=== PATIENT | male | born 1935 | race Caucasian/White ===

== ENCOUNTER 2017-02-14 09:07 | Inpatient (IN) | payer MEDICARE, SELFPAY ==
[2017-02-14] MEDS ORDERED: Ibuprofen 200 MG Tab PO ONE (09:31)
--- NOTE | 2017-02-14 09:31 | EDM.PDOC ---
ED HPI GENERAL MEDICAL PROBLEM - General Chief Complaint: General Stated Complaint: shortness of breath,fever Time Seen by Provider: 02/14/17 09:19 Source of Information: Reports: Patient, Family, [facility] records, RN History Limitations: Reports: Altered mental status - History of Present Illness INITIAL COMMENTS - FREE TEXT/NARRATIVE: This patient is an 81 year old male that presents to the ER. Patient arrives via EMS. Patient has chronic history of confusion, family at bedside said the patient is a little more confused than normal. The patient comes from alf. The report I have obtained is the patient has had congestion, productive cough, shortness of breath, fever today. The patient is alert, he is oriented to self and year. He does not know where he is, or why he is here. The patient does report that he feels fine, then when I ask him history questions he answers. The patient reports that he has had a chest cold for about 2 weeks. The patient does report some shortness of breath. The patient is conversing in full and complete sentences without difficulty. The family also reports the patient has been incontinent of urine today, but that is his norm. The son reports the patient is in basic care at alf. Reports they get hiim up, help him get cleaned, dressed, fed, then he is independent the remainder of the day. Today he was not able to be independent. Duration: Week(s): (2 per patient) Improves with: Reports: None Worsens with: Reports: None Associated Symptoms: Reports: confusion, cough, cough w sputum, fever/chills, shortness of breath. Denies: chest pain, diaphoresis, headaches, loss of appetite, malaise, nausea/vomiting, rash, seizure, syncope, weakness Treatments [employer]: Reports: Acetaminophen, IV/IO - Related Data Allergies Allergy/AdvReac Type Severity Reaction Status Date / Time No Known Allergies Allergy Verified 02/14/17 09:12 Home Meds: Home Meds Furosemide [Lasix] 40 mg PO ASDIRECTED 01/20/14 [History] Insulin Aspart [Novolog Flexpen] 18 units SUBCUT BID 01/20/14 [History] Insulin Detemir [Levemir Flexpen] 25 units SUBCUT QPM 01/20/14 [History] Lisinopril [Prinivil] 2.5 mg PO DAILY 01/20/14 [History] Niacin [Niaspan] 1,000 mg PO BEDTIME 01/20/14 [History] Oxybutynin 5 mg PO BID 01/20/14 [History] atorvaSTATin [Lipitor] 20 mg PO BEDTIME 01/20/14 [History] Aspirin [Ecotrin] 325 mg PO DAILY 01/21/14 [History] Insulin Detemir [Levemir] 30 unit SUBCUT QAM 01/21/14 [History] Potassium Chloride 15 ml PO DAILY 01/21/14 [History] Magaldrate/Simethicone [Riopan Plus] 15 ml PO ASDIRECTED PRN 03/03/14 [History] Acetaminophen [Tylenol Arthritis] 650 mg PO ASDIRECTED PRN 02/14/17 [History] Acetaminophen [Tylenol Arthritis] 650 mg PO TID 02/14/17 [History] Clotrimazole [Lotrimin AF 1% Crm] 30 gm TOP DAILY 02/14/17 [History] Furosemide [Lasix] 80 mg PO ASDIRECTED 02/14/17 [History] Insulin Aspart [NovoLOG] 15 unit SUBCUT QPM 02/14/17 [History] Metoprolol Succinate [Toprol XL] 50 mg PO DAILY 02/14/17 [History] Nitroglycerin [Nitrostat] 0.4 mg SL Q5M PRN 02/14/17 [History] Spironolactone [Aldactone] 25 mg PO DAILY 02/14/17 [History] Social & Family History - Tobacco Use Years of Tobacco use: 10 Used Tobacco, but Quit: Yes Month Tobacco Last Used: 15 years ago Second Hand Smoke Exposure: No - Alcohol Use Days Per Week of Alcohol Use: 0 - Recreational Drug Use Recreational Drug Use: No ED ROS GENERAL - Review of Systems Review Of Systems: See Below Constitutional: Reports: fever HEENT: Reports: Rhinitis, Sinus problem Respiratory: Reports: Shortness of Breath, Cough, Sputum Cardiovascular: Reports: No symptoms Endocrine: Reports: high glucose GI/Abdominal: Reports: No symptoms : Reports: incontinence Musculoskeletal: Reports: no symptoms Skin: Reports: no symptoms Neurological: Reports: Confusion Psychiatric: Reports: No symptoms Hematologic/Lymphatic: Reports: no symptoms Immunologic: Reports: no symptoms ED EXAM, GENERAL - Physical Exam Exam: See Below Exam Limited By: Altered mental status General Appearance: alert, WD/WN, no apparent distress Eye Exam: bilateral eye: normal inspection, PERRL Ears: normal external exam, normal canal, hearing grossly normal, normal TMs Ear Exam: bilateral ear: auricle normal, canal normal, TM normal Nose: normal inspection, normal mucosa, no blood Throat/Mouth: Normal gums, Normal voice, No airway compromise, Other (dry cracking lips. dry oral mucosa.) Head: atraumatic, normocephalic Neck: normal inspection, supple, non-tender, full range of motion Respiratory/Chest: no respiratory distress, no accessory muscle use, chest non- tender, crackles (BLL). No: accessory muscle use, retractions Cardiovascular: tachycardia, other (+1 BLE edema.) Peripheral Pulses: 2+: radial (L), radial (R), posterior tibial (L), posterior tibial (R), dorsalis pedis (L), dorsalis pedis (R) GI/Abdominal: normal bowel sounds, soft, non tender, no organomegaly, no distention, no abnormal bruit, no mass Back Exam: normal inspection Extremities: normal range of motion, non-tender, normal capillary refill, pedal edema (+1 BLE edema. ), redness (mild LLE anterior boss. Not hot to touch. No obivious infectious source at this site.) Neurological: alert, no motor/sensory deficits, confused, disoriented, slow to respond (to year). No: inattentive Psychiatric: normal affect, normal mood Skin Exam: Warm, Dry, Intact, Normal color, No rash, Erythema (LLE) Lymphatic: no adenopathy EKG INTERPRETATION EKG Date: 02/14/17 Time: 09:49 Rhythm: other (tachy) Rate (beats/min): 107 Comparison: NA - no prior EKG Course - Vital Signs Last Recorded V/S: Last Vital Signs Temp 100.6 F 02/14/17 09:43 Pulse 107 H 02/14/17 09:43 Resp 20 02/14/17 09:43 BP 146/70 H 02/14/17 09:43 Pulse Ox 93 L 02/14/17 09:43 - Orders/Labs/Meds Orders: Active Orders 24 hr Category Date Time Status Chest 1V Frontal [CR] Stat Exams 02/14/17 09:27 Ordered C-REACTIVE PROTEIN [CHEM] Stat Lab 02/14/17 09:32 Received CBC WITH AUTO DIFF [HEME] Stat Lab 02/14/17 09:32 Results COMPREHENSIVE METABOLIC PN,CMP [CHEM] Stat Lab 02/14/17 09:32 Received CULTURE BLOOD [BC] Stat Lab 02/14/17 09:20 Ordered CULTURE BLOOD [BC] Stat Lab 02/14/17 09:20 Ordered MANUAL DIFFERENTIAL QA/NC [HEME] Stat Lab 02/14/17 09:32 Results PRO B-TYPE NATRIUR PEPT,BNPPRO [CHEM] Stat Lab 02/14/17 09:32 Received TROPONIN I [CHEM] Stat Lab 02/14/17 09:32 Received URINALYSIS W/MICROSCOPIC [UA W/MICROSCOPIC] [URIN] Stat Lab 02/14/17 09:32 Uncollected Azithromycin [Zithromax] 500 mg Med 02/14/17 10:15 Active Sodium Chloride 0.9% [Normal Saline] 250 ml IV NOW Sodium Chloride 0.9% [Normal Saline] 1,000 ml Med 02/14/17 10:14 Active IV .BOLUS Blood Culture x2 Reflex Set [OM.PC] Stat Oth 02/14/17 09:19 Ordered Medication Orders Sodium Chloride (Normal Saline) 1,000 mls @ 1,000 mls/hr IV .BOLUS ONE Stop: 02/14/17 11:13 Azithromycin 500 mg/ Sodium (Chloride) 250 mls @ 250 mls/hr IV NOW STA Stop: 02/14/17 11:14 Labs: Laboratory Tests 02/14/17 02/14/17 02/14/17 Range/Units 09:32 09:32 09:32 WBC 20.3 H* (5.0-10.0) 10^3/uL RBC 4.49 L (4.50-6.00) 10^6/uL Hgb 14.1 (14.0-18.0) g/dL Hct 42.5 (40.0-54.0) % MCV 94.7 H (82.0-94.0) fL MCH 31.4 (27.0-32.0) pg MCHC 33.2 (33.0-38.0) g/dL RDW Coeff of Alem 12.7 (11.0-15.0) % Plt Count 150 (150-400) 10^3/uL Add Manual Diff Yes Sodium 141 (136-145) mEq/L Potassium 4.5 (3.5-5.0) mEq/L Chloride 103 (98-106) mEq/L Carbon Dioxide 23 (21-32) mmol/L BUN 31 H D (7-18) mg/dL Creatinine 2.2 H D (0.7-1.3) mg/dL Est Cr Clr Drug Dosing 25.47 mL/min Estimated GFR (MDRD) 29 L (>=60) mL/min Glucose 328 H* D (75-99) mg/dL Lactic Acid 6.0 H (0.4-2.0) mmol/L Calcium 9.0 (8.4-10.1) mg/dL Total Bilirubin 0.7 (0.0-1.0) mg/dL AST 21 (15-37) U/L ALT 32 (12-78) U/L Alkaline Phosphatase 71 (46-116) U/L Troponin I 0.025 (0.00-0.06) ng/mL C-Reactive Protein 16.4 H (0.2-0.8) mg/dL Elg-[id number]-Wlxhyffrhzg Pept 895 (0-1000) pg/nL Total Protein 7.8 (6.4-8.2) g/dL Albumin 3.5 (3.4-5.0) g/dL Meds: Medications Generic Name Dose Route Start Last Admin Trade Name Freq PRN Reason Stop Dose Admin Sodium Chloride 1,000 mls @ 1,000 mls/hr 02/14/17 10:14 Normal Saline IV 02/14/17 11:13 .BOLUS ONE Azithromycin 500 mg/ Sodium 250 mls @ 250 mls/hr 02/14/17 10:15 Chloride IV 02/14/17 11:14 NOW STA Discontinued Medications Generic Name Dose Route Start Last Admin Trade Name Freq PRN Reason Stop Dose Admin Ceftriaxone Sodium 2 gm 02/14/17 10:15 Rocephin IVPUSH 02/14/17 10:16 ONETIME ONE Ibuprofen 800 mg 02/14/17 09:31 02/14/17 09:45 Motrin PO 02/14/17 09:32 800 mg ONETIME ONE Administration - Radiology Interpretation Free Text/Narrative:: CXR: RLL infiltrate. Possible LLE infiltrate. Departure - Departure Time of Disposition: 10:14 Disposition: Admitted As Inpatient 65 Condition: fair Clinical Impression: Pneumonia, Acute renal insufficiency Forms: ED Department Discharge - My Orders Last 24 Hours: My Active Orders 02/14/17 09:19 Blood Culture x2 Reflex Set [OM.PC] Stat 02/14/17 09:20 CULTURE BLOOD [BC] Stat CULTURE BLOOD [BC] Stat 02/14/17 09:27 Chest 1V Frontal [CR] Stat 02/14/17 09:32 C-REACTIVE PROTEIN [CHEM] Stat CBC WITH AUTO DIFF [HEME] Stat COMPREHENSIVE METABOLIC PN,CMP [CHEM] Stat MANUAL DIFFERENTIAL QA/NC [HEME] Stat PRO B-TYPE NATRIUR PEPT,BNPPRO [CHEM] Stat TROPONIN I [CHEM] Stat URINALYSIS W/MICROSCOPIC [UA W/MICROSCOPIC] [URIN] Stat 02/14/17 10:14 Sodium Chloride 0.9% [Normal Saline] 1,000 ml IV .BOLUS 02/14/17 10:15 Azithromycin [Zithromax] 500 mg Sodium Chloride 0.9% [Normal Saline] 250 ml IV NOW - Assessment/Plan Last 24 Hours: My Active Orders 02/14/17 09:19 Blood Culture x2 Reflex Set [OM.PC] Stat 02/14/17 09:20 CULTURE BLOOD [BC] Stat CULTURE BLOOD [BC] Stat 02/14/17 09:27 Chest 1V Frontal [CR] Stat 02/14/17 09:32 C-REACTIVE PROTEIN [CHEM] Stat CBC WITH AUTO DIFF [HEME] Stat COMPREHENSIVE METABOLIC PN,CMP [CHEM] Stat MANUAL DIFFERENTIAL QA/NC [HEME] Stat PRO B-TYPE NATRIUR PEPT,BNPPRO [CHEM] Stat TROPONIN I [CHEM] Stat URINALYSIS W/MICROSCOPIC [UA W/MICROSCOPIC] [URIN] Stat 02/14/17 10:14 Sodium Chloride 0.9% [Normal Saline] 1,000 ml IV .BOLUS 02/14/17 10:15 Azithromycin [Zithromax] 500 mg Sodium Chloride 0.9% [Normal Saline] 250 ml IV NOW Plan: PLEASE USE ER H&P ADMIT H&P. PLEASE SEE RN NOTE FOR PFSH.
[2017-02-14] MEDS ORDERED: Sodium Chloride 0.9% 1,000 ML IV ONE (10:14)
[2017-02-14] MEDS ORDERED: cefTRIAXone 2 GM Vial IVPUSH ONE (10:15)
[2017-02-14] MEDS ORDERED: Azithromycin 500 MG in Sodium Chloride 0.9% 250 ML IV STA (10:15)
[2017-02-14] MEDS ORDERED: Acetaminophen 325 MG Tab PO PRN (11:44)
[2017-02-14] MEDS ORDERED: Aluminum Hydroxide/Magnesium Hydroxide/Simethicone Susp 30 ML Cup PO PRN (11:44)
[2017-02-14] MEDS ORDERED: Albuterol/Ipratropium 3.0-0.5 MG/3 ML Neb Soln NEB PRN (11:44)
[2017-02-14] MEDS ORDERED: Ibuprofen 200 MG Tab PO PRN (11:44)
[2017-02-14] MEDS ORDERED: Nitroglycerin 0.4 MG Tab.SL SL PRN (11:44)
[2017-02-14] MEDS ORDERED: Acetaminophen/HYDROcodone 325-5 MG Tab PO PRN (11:44)
[2017-02-14] MEDS ORDERED: Ondansetron 4 MG/2 ML SDV IV PRN (11:44)
[2017-02-14] MEDS ORDERED: Morphine 2 MG/ML Syringe IVPUSH PRN (11:44)
[2017-02-14] MEDS: Insulin Aspart 100 Units/ML 3 ML Pen SUBCUT SCH ×2 (12:32→18:57)
[2017-02-14] MEDS: Enoxaparin 30 MG/0.3 ML Syringe SUBCUT SCH (12:32)
[2017-02-14] MEDS: Sodium Chloride 0.9% 1,000 ML IV SCH (12:32)
[2017-02-14] MEDS: atorvaSTATin 20 MG Tab PO SCH (19:59)
[2017-02-14] MEDS: Oxybutynin 5 MG Tab PO SCH (19:59)
[2017-02-14] MEDS: Insulin Detemir 100 Units/ML 3 ML Pen SUBCUT SCH (20:54)
[2017-02-14] MEDS: NIACIN 1000 MG PO SCH (20:56)
[2017-02-15] MEDS: Sodium Chloride 0.9% 1,000 ML IV SCH (01:55)
[2017-02-15] MEDS: Aspirin 325 MG Tab.EC PO SCH (07:45)
[2017-02-15] MEDS: Potassium Chloride 10% 20 MEQ/15 ML Soln 15 ML UD Cup PO SCH (07:45)
[2017-02-15] MEDS: Metoprolol Succinate 25 MG Tab.ER PO SCH (07:46)
[2017-02-15] MEDS: Oxybutynin 5 MG Tab PO SCH ×2 (07:46→19:58)
[2017-02-15] MEDS: Lisinopril 5 MG Tab PO SCH (07:46)
[2017-02-15] MEDS: Spironolactone 25 MG Tab PO SCH (07:47)
[2017-02-15] MEDS: cefTRIAXone 1 GM Vial IVPUSH SCH (07:48)
[2017-02-15] MEDS: Clotrimazole 1% Crm 30 GM Tube TOP SCH (07:49)
[2017-02-15] MEDS: Insulin Aspart 100 Units/ML 3 ML Pen SUBCUT SCH ×3 (07:50→17:39)
[2017-02-15] MEDS ORDERED: Furosemide 40 MG Tab PO SCH (08:00)
[2017-02-15] MEDS ORDERED: Insulin Detemir 100 Units/ML 3 ML Pen SUBCUT SCH (08:00)
[2017-02-15] MEDS: Albuterol/Ipratropium 3.0-0.5 MG/3 ML Neb Soln NEB SCH ×4 (09:05→21:57)
[2017-02-15] MEDS: Azithromycin 500 MG in Sodium Chloride 0.9% 250 ML IV SCH (09:05)
--- NOTE | 2017-02-15 10:35 | PN ---
DATE: 02/15/2017 S: Ralf Ta is an 81-year-old gentleman who is mildly septic with an elevated white count. O: NECK: Supple. CHEST: Occasional wheezing in right lung. ABDOMEN: Soft. EXTREMITIES: He has a moderate severe cellulitis or vasculitis in the left lower extremity. ASSESSMENT: 1. VASCULITIS. 2. BRONCHIOLITIS. 3. DIABETES MELLITUS. 4. RENAL INSUFFICIENCY. P: Continue present therapy. SY /[id number]
[2017-02-15] MEDS: Enoxaparin 30 MG/0.3 ML Syringe SUBCUT SCH (12:04)
[2017-02-15] MEDS: atorvaSTATin 20 MG Tab PO SCH (19:58)
[2017-02-15] MEDS: Insulin Detemir 100 Units/ML 3 ML Pen SUBCUT SCH (20:02)
[2017-02-15] MEDS: NIACIN 1000 MG PO SCH (20:14)
[2017-02-16] MEDS ORDERED: Furosemide 80 MG Tab PO SCH (08:00)
[2017-02-16] MEDS: Aspirin 325 MG Tab.EC PO SCH (08:17)
[2017-02-16] MEDS: Furosemide 40 MG Tab PO SCH (08:17)
[2017-02-16] MEDS: Oxybutynin 5 MG Tab PO SCH ×2 (08:17→21:38)
[2017-02-16] MEDS: Lisinopril 5 MG Tab PO SCH (08:18)
[2017-02-16] MEDS: Spironolactone 25 MG Tab PO SCH (08:18)
[2017-02-16] MEDS: Potassium Chloride 10% 20 MEQ/15 ML Soln 15 ML UD Cup PO SCH (08:18)
[2017-02-16] MEDS: Clotrimazole 1% Crm 30 GM Tube TOP SCH (08:18)
[2017-02-16] MEDS: Metoprolol Succinate 25 MG Tab.ER PO SCH (08:18)
[2017-02-16] MEDS: Insulin Detemir 100 Units/ML 3 ML Pen SUBCUT SCH ×2 (08:21→21:36)
[2017-02-16] MEDS: Insulin Aspart 100 Units/ML 3 ML Pen SUBCUT SCH ×3 (08:21→18:04)
[2017-02-16] MEDS: cefTRIAXone 1 GM Vial IVPUSH SCH (08:46)
[2017-02-16] MEDS: Albuterol/Ipratropium 3.0-0.5 MG/3 ML Neb Soln NEB SCH ×4 (08:47→21:41)
[2017-02-16] MEDS: Azithromycin 500 MG in Sodium Chloride 0.9% 250 ML IV SCH (08:47)
--- NOTE | 2017-02-16 12:45 | PN ---
DATE: 02/16/2017 S: Ralf Ta is in with a cellulitis to the left lower extremity, bronchiolitis. He says he feels much better. O: NECK: Supple. CHEST: Basically clear. CARDIAC: Sounds are good. Cellulitis 50% improved. ASSESSMENT: 1. CELLULITIS. 2. BRONCHIOLITIS. P: Continue present therapy. Blood sugar has been good. LAURA/QUIANA /[id number]
[2017-02-16] MEDS: Enoxaparin 30 MG/0.3 ML Syringe SUBCUT SCH (13:06)
[2017-02-16] MEDS: atorvaSTATin 20 MG Tab PO SCH (21:37)
[2017-02-16] MEDS: NIACIN 1000 MG PO SCH (21:39)
[2017-02-17] MEDS: Insulin Detemir 100 Units/ML 3 ML Pen SUBCUT SCH ×2 (08:05→20:21)
[2017-02-17] MEDS: Azithromycin 500 MG in Sodium Chloride 0.9% 250 ML IV SCH (08:07)
[2017-02-17] MEDS: Potassium Chloride 10% 20 MEQ/15 ML Soln 15 ML UD Cup PO SCH (08:07)
[2017-02-17] MEDS: cefTRIAXone 1 GM Vial IVPUSH SCH (08:07)
[2017-02-17] MEDS: Furosemide 40 MG Tab PO SCH (08:08)
[2017-02-17] MEDS: Oxybutynin 5 MG Tab PO SCH ×2 (08:08→20:21)
[2017-02-17] MEDS: Lisinopril 5 MG Tab PO SCH (08:08)
[2017-02-17] MEDS: Spironolactone 25 MG Tab PO SCH (08:09)
[2017-02-17] MEDS: Metoprolol Succinate 25 MG Tab.ER PO SCH (08:09)
[2017-02-17] MEDS: Aspirin 325 MG Tab.EC PO SCH (08:10)
[2017-02-17] MEDS: Clotrimazole 1% Crm 30 GM Tube TOP SCH (08:10)
[2017-02-17] MEDS: Insulin Aspart 100 Units/ML 3 ML Pen SUBCUT SCH ×3 (08:13→17:30)
[2017-02-17] MEDS: Albuterol/Ipratropium 3.0-0.5 MG/3 ML Neb Soln NEB SCH ×4 (09:14→20:22)
--- NOTE | 2017-02-17 10:42 | PN ---
DATE: 02/17/2017 S: Ralf Ta in with bronchiolitis, cellulitis to the left lower extremity, doing quite nice, and he feels better. O: LUNGS: Relatively clear. EXTREMITIES: Cellulitis of the left lower extremity resolving nicely. C-reactive protein is down. ASSESSMENT: CELLULITIS, BRONCHIOLITIS RESPONDING NICELY. LAURA/QUIANA /[id number]
[2017-02-17] MEDS: Enoxaparin 30 MG/0.3 ML Syringe SUBCUT SCH (12:23)
[2017-02-17] MEDS: NIACIN 1000 MG PO SCH (20:21)
[2017-02-17] MEDS: atorvaSTATin 20 MG Tab PO SCH (20:21)
[2017-02-18] MEDS: Insulin Detemir 100 Units/ML 3 ML Pen SUBCUT SCH (07:20)
[2017-02-18 07:25] VITALS: BP 160/91
[2017-02-18] MEDS: Spironolactone 25 MG Tab PO SCH (07:30)
[2017-02-18] MEDS: Clotrimazole 1% Crm 30 GM Tube TOP SCH (07:30)
[2017-02-18] MEDS: Aspirin 325 MG Tab.EC PO SCH (07:30)
[2017-02-18] MEDS: Furosemide 40 MG Tab PO SCH (07:30)
[2017-02-18] MEDS: Potassium Chloride 10% 20 MEQ/15 ML Soln 15 ML UD Cup PO SCH (07:31)
[2017-02-18] MEDS: Oxybutynin 5 MG Tab PO SCH (07:31)
[2017-02-18] MEDS: Lisinopril 5 MG Tab PO SCH (07:31)
[2017-02-18] MEDS: Metoprolol Succinate 25 MG Tab.ER PO SCH (07:32)
[2017-02-18] MEDS: cefTRIAXone 1 GM Vial IVPUSH SCH (07:32)
[2017-02-18] MEDS: Azithromycin 500 MG in Sodium Chloride 0.9% 250 ML IV SCH (07:41)
[2017-02-18] MEDS: Insulin Aspart 100 Units/ML 3 ML Pen SUBCUT SCH (08:17)
[2017-02-18] MEDS: Albuterol/Ipratropium 3.0-0.5 MG/3 ML Neb Soln NEB SCH (08:46)
--- NOTE | 2017-02-21 07:24 | DISCH ---
HOSPITAL COURSE: Ralf Ta is an elderly 81-year-old gentleman from the [facility] in [place] came down with bronchiolitis and cellulitis of left lower extremity, started on IV antibiotics and responded nicely at time of discharge. His lungs were clear. The cellulitis almost totally resolved. C-reactive protein is 16.4 on admission that dropped down to 7.4 day before discharge. CBC on admission, white count 23 that dropped to normal at 5. Panel-8, creatinine was elevated at 2.2 that came down to normal after IV fluids and his blood sugars were elevated when he came in, they returned to treatable levels. Urinalysis showed glycosuria. DISPOSITION: The patient discharged back to [facility] and to be seen on a p.r.n. basis. DISCHARGE MEDICATIONS: Hospital medications plus Levaquin 500 mg daily for 7 days. DISCHARGE DIAGNOSIS: 1. BRONCHIOLITIS. 2. CELLULITIS, LEFT LOWER EXTREMITY. 3. ACUTE RENAL INSUFFICIENCY. 4. DIABETES MELLITUS. 5. HYPERTENSION. LAURA/QUIANA /[id number]
== END 2017-02-18 10:20 | DRG 202 ==
LOC: CC.ED 09:07 → UNDOADMIN 11:00 → CC.MS 11:00 → UNDOADMIN 11:44 → CC.MS 11:44
PROVIDERS: ADMIT Nurse Practitioner; ATTEND General Practice
DX: J18.9 Pneumonia, unspecified organism (principal); J21.9 Acute bronchiolitis, unspecified; L03.116 Cellulitis of left lower limb; N17.9 Acute kidney failure, unspecified; E11.9 Type 2 diabetes mellitus without complications; I10 Essential (primary) hypertension; Z79.4 Long term (current) use of insulin
CPT/HCPCS: 36415; 51702; 71010; 80053; 81001; 83605; 83880; 84484; 85025; 86140; 87040 ×2; 87804 ×2; 93005; 93010; 96365; 96375; 99285; A9270; J0456; J0696; J7030; J7050; 80048; 82962; 83735; 84443; 93880; 94640; 94640-76; 94760; 96368; 97161-GP; J1650; J1815-GY

== ENCOUNTER 2018-04-25 12:30 | Inpatient (IN) | payer MEDICARE, MEDICAID ==
--- NOTE | 2018-04-25 12:51 | EDM.PDOC ---
ED HPI GENERAL MEDICAL PROBLEM - General Chief Complaint: Lower Extremity Injury/Pain Stated Complaint: LLE cellulitis and decreased kidney function Time Seen by Provider: 04/25/18 12:44 Source of Information: Reports: Patient, Family History Limitations: Reports: No Limitations - History of Present Illness INITIAL COMMENTS - FREE TEXT/NARRATIVE: Ralf is an 82 year old male, with PMH of insulin dependent type II DM, CAD, hypertension, hyperlipidemia, CKD, urinary incontinence, dementia, and obesity who presents to the ED as directed by his PCP in [place] with c/o right "kidney pain." He reports he has been struggling with left foot cellulitis and was hospitalized in [place] 04/11/18-04/14/18. He reports he has been on oral antibiotics since then as well. He was in to see his PCP today with this c/o kidney pain. Workup was completed and his creatinine was found to be 2.9 on lab work. She recommended he go to the [place] ER for admission for IVF and antibiotics. The patient refused to go to [place] and instead came to [facility] as he wished to be admitted here. He reports he normally doctors with Dr. Song so he wanted to come here. He currently resides in [facility] in [place]. He reports that the past few days he has had some right flank pain/mid back pain that sort of radiates to his groin. He has also been somewhat nauseated the last four days. He denies any chest pain, shortness of breath at rest, diarrhea, abdominal pain, dizziness, decreased appetite, fever, chills, N/T. Upon further questioning he denies flank/back pain in the ED. He rates the pain a 2/10 to his left foot. He has not tried taking anything for it. Pain is worse with movement. He reports that he has been on oral antibiotics for his left foot cellulitis. He feels that it has gotten more red and warm to touch the past few days. Onset: Gradual, Unknown/Unsure Duration: Getting Worse Location: Reports: Lower Extremity, Left Left Leg Pain Score (Numeric/FACES): 2 - Related Data Allergies Allergy/AdvReac Type Severity Reaction Status Date / Time No Known Allergies Allergy Verified 04/25/18 14:11 Home Meds: Home Meds Furosemide [Lasix] 40 mg PO ASDIRECTED 01/20/14 [History] Insulin Aspart [Novolog Flexpen] 20 units SUBCUT 08,12 01/20/14 [History] Insulin Detemir [Levemir Flexpen] 25 units SUBCUT QPM 01/20/14 [History] Lisinopril [Prinivil] 2.5 mg PO DAILY 01/20/14 [History] Niacin [Niaspan] 1,000 mg PO BEDTIME 01/20/14 [History] Oxybutynin 5 mg PO BID 01/20/14 [History] atorvaSTATin [Lipitor] 20 mg PO BEDTIME 01/20/14 [History] Insulin Detemir [Levemir] 30 unit SUBCUT QAM 01/21/14 [History] Potassium Chloride 15 ml PO DAILY 01/21/14 [History] Nitroglycerin [Nitrostat] 0.4 mg SL Q5M PRN 02/14/17 [History] Spironolactone [Aldactone] 25 mg PO DAILY 02/14/17 [History] Metoprolol Succinate [Toprol XL] 25 mg PO DAILY tab.er 02/18/17 [Rx] Insulin Detemir [Levemir] 25 unit SUBCUT BEDTIME 04/25/18 [History] Insulin Detemir [Levemir] 30 unit SUBCUT ACBREAKFAST 04/25/18 [History] Sulfamethoxazole/Trimethoprim [Sulfatrim 800-160 mg/20 ml Tracie] 20 ml PO DAILY [History] Past Medical History HEENT History: Reports: Cataract Cardiovascular History: Reports: Angina, Bypass, High Cholesterol, Hypertension , NM Genitourinary History: Reports: Urinary Incontinence Musculoskeletal History: Reports: Arthritis Neurological History: Reports: Other (See Below) Other Neuro History: some short term memory loss Psychiatric History: Reports: Dementia Endocrine/Metabolic History: Reports: IDDM - Past Surgical History HEENT Surgical History: Reports: Cataract Surgery Cardiovascular Surgical History: Reports: Coronary Artery Bypass GI Surgical History: Reports: Appendectomy Musculoskeletal Surgical History: Reports: None Social & Family History - Family History Family Medical History: Noncontributory - Tobacco Use Smoking Status *Q: Never Smoker - Caffeine Use Caffeine Use: Reports: Coffee Review of Systems - Review of Systems Review Of Systems: See Below Constitutional: Denies: Chills, Diaphoresis, Fever, Weakness Eyes: Reports: No Symptoms Ears: Reports: No Symptoms Nose: Reports: No Symptoms Mouth/Throat: Reports: No Symptoms Respiratory: Reports: No Symptoms. Denies: Shortness of Breath, Wheezing, Pleuritic Chest Pain, Cough, Sputum Cardiovascular: Reports: Edema, Other (dyspnea with exertion). Denies: Chest Pain, Lightheadedness, Palpitations, Syncope GI/Abdominal: Reports: Nausea. Denies: Abdominal Pain, Constipation, Decreased Appetite, Diarrhea, Vomiting Genitourinary: Reports: Incontinence. Denies: Dysuria, Hematuria Musculoskeletal: Reports: Back Pain Skin: Reports: Erythema (LLE) Neurological: Denies: Dizziness, Headache, Numbness, Paresthesia, Tingling, Difficulty Walking, Weakness, Gait Disturbance ED EXAM, GENERAL - Physical Exam Exam: See Below Exam Limited By: No Limitations General Appearance: Alert, WD/WN, No Apparent Distress Head: Atraumatic, Normocephalic Neck: Normal Inspection, Supple, Non-Tender, Full Range of Motion Respiratory/Chest: No Respiratory Distress, Lungs Clear, Normal Breath Sounds, No Accessory Muscle Use, Chest Non-Tender Cardiovascular: Normal Peripheral Pulses, No JVD, No Murmur, Irregularly Irregular Peripheral Pulses: 2+: Posterior Tibial (L), Posterior Tibial (R), Dorsalis Pedis (L), Dorsalis Pedis (R) GI/Abdominal: Normal Bowel Sounds, Soft, Non-Tender, No Organomegaly, No Distention, No Abnormal Bruit, No Mass Back Exam: Normal Inspection, Full Range of Motion. No: CVA Tenderness (L), CVA Tenderness (R) Extremities: Normal Range of Motion, Non-Tender, Normal Capillary Refill, Pedal Edema (2+ pitting to LLE, 1+ pitting to RLE), Increased Warmth (Left foot), Redness (left foot ). No: Jim's Sign, Leg Pain Neurological: Alert, Oriented, CN II-XII Intact, Normal Cognition, Normal Gait, Normal Reflexes, No Motor/Sensory Deficits Psychiatric: Normal Affect, Normal Mood Skin Exam: Erythema (left foot), Increased Warmth (left foot), Other (scattered scabs ) Lymphatic: No Adenopathy Course - Vital Signs Last Recorded V/S: Last Vital Signs Temp 97.4 F 04/27/18 15:34 Pulse 70 06/21/18 15:34 Resp 18 04/27/18 15:34 BP 135/58 L 04/27/18 15:34 Pulse Ox 98 04/27/18 15:34 - Orders/Labs/Meds Orders: Medication Orders Acetaminophen (Tylenol) 650 mg PO Q4H PRN PRN Reason: Pain (Mild 1-3)/fever Atorvastatin Calcium (Lipitor) 20 mg PO BEDTIME [facility] Last Admin: 04/26/18 20:24 Dose: 20 mg Admin: 04/25/18 20:07 Dose: 20 mg Enoxaparin Sodium (Lovenox) 30 mg SUBCUT DAILY@1600 [facility] Last Admin: 04/27/18 16:58 Dose: 30 mg Admin: 04/26/18 16:56 Dose: 30 mg Admin: 04/25/18 15:18 Dose: 30 mg Furosemide (Lasix) 40 mg PO DAILY [facility] Last Admin: 04/27/18 07:53 Dose: 40 mg Admin: 04/26/18 07:26 Dose: 40 mg Sodium Chloride (Normal Saline) 1,000 mls @ 75 mls/hr IV ASDIRECTED [facility] Last Admin: 04/27/18 04:19 Dose: 75 mls/hr Infusion: 04/27/18 03:12 Dose: 75 mls/hr Admin: 04/26/18 13:52 Dose: 75 mls/hr Insulin Aspart (Novolog) 0 unit SUBCUT WITHMEALSANDBED [facility]; Protocol Last Admin: 04/27/18 17:06 Dose: 3 units Admin: 04/27/18 11:52 Dose: 3 units Admin: 04/27/18 08:11 Dose: 3 units Admin: 04/26/18 20:47 Dose: 3 units Admin: 04/26/18 17:29 Dose: Not Given Insulin Detemir (Levemir) 25 unit SUBCUT BEDTIME [facility] Last Admin: 04/26/18 20:51 Dose: 25 units Admin: 04/25/18 20:16 Dose: 25 units Insulin Detemir (Levemir) 30 unit SUBCUT DAILY [facility] Last Admin: 04/27/18 07:54 Dose: 30 units Admin: 04/26/18 07:29 Dose: 30 units Lisinopril (Prinivil) 2.5 mg PO DAILY [facility] Last Admin: 04/27/18 07:51 Dose: 2.5 mg Admin: 04/26/18 07:26 Dose: 2.5 mg Magnesium Hydroxide (Milk Of Magnesia) 30 ml PO Q12H PRN PRN Reason: Constipation Metoprolol Succinate (Toprol Xl) 25 mg PO DAILY [facility] Last Admin: 04/27/18 07:51 Dose: 25 mg Admin: 04/26/18 07:33 Dose: 25 mg Nitroglycerin (Nitrostat) 0.4 mg SL Q5M PRN PRN Reason: Chest Pain Niacin [Niaspan] 1, (000 Mg) 1,000 mg PO BEDTIME [facility] Last Admin: 04/26/18 20:24 Dose: 1,000 mg Admin: 04/26/18 12:25 Dose: Oxybutynin Chloride (Oxybutynin) 5 mg PO BID [facility] Last Admin: 04/27/18 07:50 Dose: 5 mg Admin: 04/26/18 20:24 Dose: 5 mg Admin: 04/26/18 07:26 Dose: 5 mg Admin: 04/25/18 20:07 Dose: 5 mg Potassium Chloride (Klor-Con 10) 20 meq PO BIDMEALS [facility] Last Admin: 04/27/18 17:06 Dose: 20 meq Admin: 04/27/18 07:50 Dose: 20 meq Admin: 04/26/18 16:56 Dose: 20 meq Spironolactone (Aldactone) 25 mg PO DAILY [facility] Last Admin: 04/27/18 07:50 Dose: 25 mg Admin: 04/26/18 07:26 Dose: 25 mg Temazepam (Restoril) 15 mg PO BEDTIME PRN PRN Reason: Sleep Labs: Laboratory Tests 04/25/18 04/25/18 04/25/18 Range/Units 12:50 12:51 12:58 WBC 7.7 (5.0-10.0) 10^3/uL RBC 4.03 L (4.50-6.00) 10^6/uL Hgb 12.3 L (14.0-18.0) g/dL Hct 37.5 L (40.0-54.0) % MCV 93.1 (82.0-94.0) fL MCH 30.5 (27.0-32.0) pg MCHC 32.8 L (33.0-38.0) g/dL RDW Coeff of Alem 13.2 (11.0-15.0) % Plt Count 189 (150-400) 10^3/uL Neut % (Auto) 67.5 (35-85) % Lymph % (Auto) 17.5 (10-55) % [place] % (Auto) 13.5 (0-16) % Eos % (Auto) 1.0 (0-5) % Baso % (Auto) 0.5 (0-3) % Neut # (Auto) 5.16 (1.80-7.00) 10^3/uL Lymph # (Auto) 1.34 (1.00-4.80) 10^3/uL [place] # (Auto) 1.03 H (0.00-0.80) 10^3/uL Eos # (Auto) 0.08 (0.00-0.45) 10^3/uL Baso # (Auto) 0.04 10^3/uL Sodium 138 (136-145) mEq/L Potassium 4.6 (3.5-5.0) mEq/L Chloride 104 (98-106) mEq/L Carbon Dioxide 28 (21-32) mmol/L BUN 33 H (7-18) mg/dL Creatinine 2.8 H* D (0.7-1.3) mg/dL Est Cr Clr Drug Dosing 19.34 mL/min Estimated GFR (MDRD) 22 L (>=60) mL/min Glucose 58 L D (75-99) mg/dL Calcium 8.7 (8.4-10.1) mg/dL Total Bilirubin 0.3 (0.0-1.0) mg/dL AST 20 (15-37) U/L ALT 25 (12-78) U/L Alkaline Phosphatase 76 (46-116) U/L C-Reactive Protein 1.7 H (0.2-0.8) mg/dL Total Protein 7.0 (6.4-8.2) g/dL Albumin 3.2 L (3.4-5.0) g/dL Urine Color Yellow (YELLOW) Urine Appearance Clear (CLEAR) Urine pH 6.0 (4.5-8.0) Ur Specific [place] 1.010 (1.003-1.020) Urine Protein Negative (NEGATIVE) mg/dL Urine Glucose (UA) Negative (NEGATIVE) mg/dL Urine Ketones Negative (NEGATIVE) mg/dL Urine Occult Blood Negative (NEGATIVE) Urine Nitrite Negative (NEGATIVE) Urine Bilirubin Negative (NEGATIVE) Urine Urobilinogen 0.2 (0.2-1.0) EU/dL Ur Leukocyte Esterase Negative (NEGATIVE) Urine RBC Not seen (0-5) /HPF Urine WBC Not seen (0-5) /HPF Meds: Medications Generic Name Dose Route Start Last Admin Trade Name Freq PRN Reason Stop Dose Admin Acetaminophen 650 mg 04/25/18 14:35 Tylenol PO Q4H PRN Pain (Mild 1-3)/fever Atorvastatin Calcium 20 mg 04/25/18 20:00 04/26/18 20:24 Lipitor PO 20 mg BEDTIME [facility] Administration Enoxaparin Sodium 30 mg 04/25/18 15:00 04/27/18 16:58 Lovenox SUBCUT 30 mg DAILY@1600 [facility] Administration Furosemide 40 mg 04/26/18 08:00 04/27/18 07:53 Lasix PO 40 mg DAILY [facility] Administration Sodium Chloride 1,000 mls @ 75 mls/hr 04/26/18 10:30 04/27/18 04:19 Normal Saline IV 75 mls/hr ASDIRECTED [facility] Administration Insulin Aspart 0 unit 04/26/18 17:30 04/27/18 17:06 Novolog SUBCUT 3 units WITHMEALSANDBED [facility] Administration Protocol Insulin Detemir 25 unit 04/25/18 20:00 04/26/18 20:51 Levemir SUBCUT 25 units BEDTIME [facility] Administration Insulin Detemir 30 unit 04/26/18 08:00 04/27/18 07:54 Levemir SUBCUT 30 units DAILY [facility] Administration Lisinopril 2.5 mg 04/26/18 08:00 04/27/18 07:51 Prinivil PO 2.5 mg DAILY [facility] Administration Magnesium Hydroxide 30 ml 04/25/18 14:35 Milk Of Magnesia PO Q12H PRN Constipation Metoprolol Succinate 25 mg 04/26/18 08:00 04/27/18 07:51 Toprol Xl PO 25 mg DAILY [facility] Administration Nitroglycerin 0.4 mg 04/25/18 14:35 Nitrostat SL Q5M PRN Chest Pain Niacin [Niaspan] 1, 1,000 mg 04/25/18 20:00 04/26/18 20:24 000 Mg PO 1,000 mg BEDTIME [facility] Administration Oxybutynin Chloride 5 mg 04/25/18 20:00 04/27/18 07:50 Oxybutynin PO 5 mg BID [facility] Administration Potassium Chloride 20 meq 04/26/18 17:30 04/27/18 17:06 Klor-Con 10 PO 20 meq BIDMEALS [facility] Administration Spironolactone 25 mg 04/26/18 08:00 04/27/18 07:50 Aldactone PO 25 mg DAILY [facility] Administration Temazepam 15 mg 04/25/18 14:35 Restoril PO BEDTIME PRN Sleep Discontinued Medications Generic Name Dose Route Start Last Admin Trade Name Freq PRN Reason Stop Dose Admin Sodium Chloride 1,000 mls @ 500 mls/hr 04/25/18 14:35 04/26/18 11:24 Normal Saline IV 500 mls/hr .BOLUS [facility] Administration Sodium Chloride 250 mls @ 500 mls/hr 04/25/18 15:15 Normal Saline IV ASDIRECTED [facility] Sodium Chloride 1,000 mls @ 500 mls/hr 04/25/18 15:15 Normal Saline IV ASDIRECTED [facility] Clindamycin Phosphate 300 mg/ 50 mls @ 100 mls/hr 04/25/18 17:30 04/26/18 05: 30 Premix IV 100 mls/hr Q6H [facility] Administration Clindamycin Phosphate 300 mg/ 50 mls @ 100 mls/hr 04/26/18 12:00 04/27/18 05: 28 Premix IV 100 mls/hr 0000,0600,1200,1800 [facility] Administration Insulin Aspart 20 unit 04/26/18 08:00 04/26/18 11:38 Novolog SUBCUT Not Given 0800,1200 [facility] Insulin Detemir 30 unit 04/26/18 08:00 Levemir SUBCUT QAM [facility] Insulin Detemir 25 unit 04/25/18 20:00 Levemir SUBCUT QPM [facility] Potassium Chloride 20 meq 04/26/18 08:00 04/26/18 07:26 Potassium Chloride Solution PO 20 meq DAILY [facility] Administration - Re-Assessments/Exams Free Text/Narrative Re-Assessment/Exam: Discussed labs with patient and family. We will admit acute to Dr. Song for IVF and IV antibiotics. Departure - Departure Time of Disposition: 14:41 Disposition: Admitted As Inpatient 65 Condition: Fair Clinical Impression: Acute on chronic renal insufficiency, Cellulitis of left foot Type II diabetes mellitus Qualifiers: Diabetes mellitus longterm insulin use: with longterm use Diabetes mellitus complication status: with kidney complications Diabetes mellitus complication detail: with chronic kidney disease Chronic kidney disease stage: stage 3 ( moderate) Qualified Code(s): E11.22 - Type 2 diabetes mellitus with diabetic chronic kidney disease - Discharge Information - Problem List & Annotations (1) Acute on chronic renal insufficiency SNOMED Code(s): 126288138 Code(s): N28.9 - DISORDER OF KIDNEY AND URETER, UNSPECIFIED; N18.9 - CHRONIC KIDNEY DISEASE, UNSPECIFIED Status: Acute Current Visit: Yes (2) Cellulitis of left foot SNOMED Code(s): 480002784 Code(s): L03.116 - CELLULITIS OF LEFT LOWER LIMB Status: Acute Current Visit: Yes (3) Type II diabetes mellitus SNOMED Code(s): 36712031 Code(s): E11.9 - TYPE 2 DIABETES MELLITUS WITHOUT COMPLICATIONS Status: Chronic Current Visit: Yes Qualifiers: Diabetes mellitus intermediate project manager insulin use: with intermediate project manager use Diabetes mellitus complication status: with kidney complications Diabetes mellitus complication detail: with chronic kidney disease Chronic kidney disease stage : stage 3 (moderate) Qualified Code(s): E11.22 - Type 2 diabetes mellitus with diabetic chronic kidney disease; N18.3 - Chronic kidney disease, stage 3 ( moderate); Z79.4 - alf (current) use of insulin (4) Hypertension SNOMED Code(s): 35622929 Code(s): I10 - ESSENTIAL (PRIMARY) HYPERTENSION Status: Acute Current Visit: Yes Qualifiers: Hypertension type: essential hypertension Qualified Code(s): I10 - Essential (primary) hypertension - Problem List Review Problem List Initiated/Reviewed/Updated: Yes - Assessment/Plan Admission H&P: Please use this note as an admission H&P Plan: Acute on Chronic Renal Insufficiency Creatinine elevated to 2.8. Baseline creatinine 1.4. Bolus NS at 500 mL/hr. UA normal. Daily labs. LLE Cellulitis Patient has been treated orally with keflex. Left foot up to ankle is slightly reddened and warm to touch. WBC normal. CRP 1.7. Will start clindamycin. Type II DM Continue home insulin dosing. QID accu checks. Consistent carb diet. Hypertension Continue home medications
[2018-04-25] MEDS ORDERED: Magnesium Hydroxide 400 MG/5 ML Susp 30 ML Cup PO PRN (14:35)
[2018-04-25] MEDS ORDERED: Nitroglycerin 0.4 MG Tab.SL SL PRN (14:35)
[2018-04-25] MEDS ORDERED: Temazepam 15 MG Cap PO PRN (14:35)
[2018-04-25] MEDS ORDERED: Acetaminophen 325 MG Tab PO PRN (14:35)
[2018-04-25] MEDS: Sodium Chloride 0.9% 1,000 ML IV SCH ×2 (15:06→15:16)
[2018-04-25] MEDS ORDERED: Sodium Chloride 0.9% 250 ML IV SCH (15:15)
[2018-04-25] MEDS ORDERED: Sodium Chloride 0.9% 1,000 ML IV SCH (15:15)
[2018-04-25] MEDS: Enoxaparin 30 MG/0.3 ML Syringe SUBCUT SCH (15:18)
[2018-04-25] MEDS: Clindamycin Phosphate in D5W 300 MG in Premix Bag 1 BAG IV SCH ×4 (18:45→23:32)
[2018-04-25] MEDS ORDERED: Insulin Detemir 100 Units/ML 3 ML Pen SUBCUT SCH (20:00)
[2018-04-25] MEDS: atorvaSTATin 20 MG Tab PO SCH (20:07)
[2018-04-25] MEDS: Oxybutynin 5 MG Tab PO SCH (20:07)
[2018-04-25] MEDS: Insulin Detemir 100 Units/ML 3 ML Pen SUBCUT SCH (20:16)
[2018-04-26] MEDS: Clindamycin Phosphate in D5W 300 MG in Premix Bag 1 BAG IV SCH ×8 (05:30→23:43)
[2018-04-26] MEDS: Oxybutynin 5 MG Tab PO SCH ×2 (07:26→20:24)
[2018-04-26] MEDS: Spironolactone 25 MG Tab PO SCH (07:26)
[2018-04-26] MEDS: Lisinopril 5 MG Tab PO SCH (07:26)
[2018-04-26] MEDS: Furosemide 20 MG Tab PO SCH (07:26)
[2018-04-26] MEDS: Insulin Detemir 100 Units/ML 3 ML Pen SUBCUT SCH ×2 (07:29→20:51)
[2018-04-26] MEDS: Metoprolol Succinate 25 MG Tab.ER PO SCH (07:33)
[2018-04-26] MEDS ORDERED: Insulin Detemir 100 Units/ML 3 ML Pen SUBCUT SCH (08:00)
[2018-04-26] MEDS ORDERED: Potassium Chloride 10% 20 MEQ/15 ML Soln 15 ML UD Cup PO SCH (08:00)
[2018-04-26] MEDS: Insulin Aspart 100 Units/ML 3 ML Pen SUBCUT SCH ×4 (08:09→20:47)
[2018-04-26] MEDS: Sodium Chloride 0.9% 1,000 ML IV SCH ×2 (11:24→13:52)
--- NOTE | 2018-04-26 12:03 | PCM.PN ---
- General Info Date of Service: 04/26/18 Admission Dx/Problem (Free Text): LLE Cellulitis Acute on Chronic Renal Insufficiency Subjective Update: Ralf was admitted yesterday with acute on chronic renal insufficiency and left foot cellulitis. He was also having some right flank pain prior to presenting here. He reports he no longer is having any pain. He reports he is feeling well this morning. His vital signs have been stable. Redness and warmth to his left foot has resolved. He is urinating without difficulty. Nursing staff report he is up with assist of 1 and has been ambulating well. Functional Status: Reports: Pain Controlled, Tolerating Diet, Ambulating, Urinating. Denies: New Symptoms - Review of Systems General: Denies: Fever, Weakness, Fatigue HEENT: Reports: No Symptoms Pulmonary: Denies: Shortness of Breath, Pleuritic Chest Pain, Cough, Sputum, Wheezing Cardiovascular: Reports: Dyspnea on Exertion, Orthopnea, Edema. Denies: Chest Pain, Lightheadedness Gastrointestinal: Reports: No Symptoms. Denies: Abdominal Pain, Constipation, Decreased Appetite, Diarrhea, Nausea, Vomiting Genitourinary: Reports: No Symptoms. Denies: Dysuria, Frequency, Urgency, Hematuria, Flank Pain Musculoskeletal: Reports: No Symptoms. Denies: Leg Pain, Foot Pain Skin: Reports: Other (scattered scabs) Neurological: Denies: Dizziness, Headache, Numbness, Syncope, Tingling, Difficulty Walking, Weakness Psychiatric: Reports: No Symptoms - Patient Data Vitals - Most Recent: Last Vital Signs Temp 97.3 F 04/26/18 07:31 Pulse 70 04/26/18 07:33 Resp 18 04/26/18 07:31 BP 120/60 04/26/18 07:33 Pulse Ox 96 04/26/18 07:31 Weight - Most Recent: 240 lb 12.8 oz I&O - Last 24 Hours: Intake & Output 04/25/18 04/26/18 04/26/18 22:59 06:59 14:59 Intake Total 1050 50 Balance 1050 50 Lab Results Last 24 Hours: Laboratory Results - last 24 hr 04/25/18 04/25/18 04/25/18 Range/Units 12:50 12:51 12:58 WBC 7.7 (5.0-10.0) 10^3/uL RBC 4.03 L (4.50-6.00) 10^6/uL Hgb 12.3 L (14.0-18.0) g/dL Hct 37.5 L (40.0-54.0) % MCV 93.1 (82.0-94.0) fL MCH 30.5 (27.0-32.0) pg MCHC 32.8 L (33.0-38.0) g/dL RDW Coeff of [place] 13.2 (11.0-15.0) % Plt Count 189 (150-400) 10^3/uL Neut % (Auto) 67.5 (35-85) % Lymph % (Auto) 17.5 (10-55) % [place] % (Auto) 13.5 (0-16) % Eos % (Auto) 1.0 (0-5) % Baso % (Auto) 0.5 (0-3) % Neut # (Auto) 5.16 (1.80-7.00) 10^3/uL Lymph # (Auto) 1.34 (1.00-4.80) 10^3/uL [place] # (Auto) 1.03 H (0.00-0.80) 10^3/uL Eos # (Auto) 0.08 (0.00-0.45) 10^3/uL Baso # (Auto) 0.04 10^3/uL Sodium 138 (136-145) mEq/L Potassium 4.6 (3.5-5.0) mEq/L Chloride 104 (98-106) mEq/L Carbon Dioxide 28 (21-32) mmol/L BUN 33 H (7-18) mg/dL Creatinine 2.8 H* D (0.7-1.3) mg/dL Est Cr Clr Drug Dosing 19.34 mL/min Estimated GFR (MDRD) 22 L (>=60) mL/min Glucose 58 L D (75-99) mg/dL POC Glucose (75-105) mg/dl Calcium 8.7 (8.4-10.1) mg/dL Total Bilirubin 0.3 (0.0-1.0) mg/dL AST 20 (15-37) U/L ALT 25 (12-78) U/L Alkaline Phosphatase 76 (46-116) U/L C-Reactive Protein 1.7 H (0.2-0.8) mg/dL Total Protein 7.0 (6.4-8.2) g/dL Albumin 3.2 L (3.4-5.0) g/dL Urine Color Yellow (YELLOW) Urine Appearance Clear (CLEAR) Urine pH 6.0 (4.5-8.0) Ur Specific [place] 1.010 (1.003-1.020) Urine Protein Negative (NEGATIVE) mg/dL Urine Glucose (UA) Negative (NEGATIVE) mg/dL Urine Ketones Negative (NEGATIVE) mg/dL Urine Occult Blood Negative (NEGATIVE) Urine Nitrite Negative (NEGATIVE) Urine Bilirubin Negative (NEGATIVE) Urine Urobilinogen 0.2 (0.2-1.0) EU/dL Ur Leukocyte Esterase Negative (NEGATIVE) Urine RBC Not seen (0-5) /HPF Urine WBC Not seen (0-5) /HPF 04/25/18 04/26/18 04/26/18 Range/Units 20:10 08:00 09:58 WBC 5.4 (5.0-10.0) 10^3/uL RBC 4.01 L (4.50-6.00) 10^6/uL Hgb 12.2 L (14.0-18.0) g/dL Hct 37.8 L (40.0-54.0) % MCV 94.3 H (82.0-94.0) fL MCH 30.4 (27.0-32.0) pg MCHC 32.3 L (33.0-38.0) g/dL RDW Coeff of [place] 13.4 (11.0-15.0) % Plt Count 181 (150-400) 10^3/uL Neut % (Auto) 64.5 (35-85) % Lymph % (Auto) 17.3 (10-55) % [place] % (Auto) 13.6 (0-16) % Eos % (Auto) 3.5 (0-5) % Baso % (Auto) 1.1 (0-3) % Neut # (Auto) 3.47 (1.80-7.00) 10^3/uL Lymph # (Auto) 0.93 L (1.00-4.80) 10^3/uL [place] # (Auto) 0.73 (0.00-0.80) 10^3/uL Eos # (Auto) 0.19 (0.00-0.45) 10^3/uL Baso # (Auto) 0.06 10^3/uL Sodium (136-145) mEq/L Potassium (3.5-5.0) mEq/L Chloride (98-106) mEq/L Carbon Dioxide (21-32) mmol/L BUN (7-18) mg/dL Creatinine (0.7-1.3) mg/dL Est Cr Clr Drug Dosing mL/min Estimated GFR (MDRD) (>=60) mL/min Glucose (75-99) mg/dL POC Glucose 171 H 113 H (75-105) mg/dl Calcium (8.4-10.1) mg/dL Total Bilirubin (0.0-1.0) mg/dL AST (15-37) U/L ALT (12-78) U/L Alkaline Phosphatase (46-116) U/L C-Reactive Protein (0.2-0.8) mg/dL Total Protein (6.4-8.2) g/dL Albumin (3.4-5.0) g/dL Urine Color (YELLOW) Urine Appearance (CLEAR) Urine pH (4.5-8.0) Ur Specific [place] (1.003-1.020) Urine Protein (NEGATIVE) mg/dL Urine Glucose (UA) (NEGATIVE) mg/dL Urine Ketones (NEGATIVE) mg/dL Urine Occult Blood (NEGATIVE) Urine Nitrite (NEGATIVE) Urine Bilirubin (NEGATIVE) Urine Urobilinogen (0.2-1.0) EU/dL Ur Leukocyte Esterase (NEGATIVE) Urine RBC (0-5) /HPF Urine WBC (0-5) /HPF 04/26/1818 04/26/18 Range/Units 09:58 10:16 11:23 WBC (5.0-10.0) 10^3/uL RBC (4.50-6.00) 10^6/uL Hgb (14.0-18.0) g/dL Hct (40.0-54.0) % MCV (82.0-94.0) fL MCH (27.0-32.0) pg MCHC (33.0-38.0) g/dL RDW Coeff of [place] (11.0-15.0) % Plt Count (150-400) 10^3/uL Neut % (Auto) (35-85) % Lymph % (Auto) (10-55) % [place] % (Auto) (0-16) % Eos % (Auto) (0-5) % Baso % (Auto) (0-3) % Neut # (Auto) (1.80-7.00) 10^3/uL Lymph # (Auto) (1.00-4.80) 10^3/uL [place] # (Auto) (0.00-0.80) 10^3/uL Eos # (Auto) (0.00-0.45) 10^3/uL Baso # (Auto) 10^3/uL Sodium 139 (136-145) mEq/L Potassium 4.8 (3.5-5.0) mEq/L Chloride 105 (98-106) mEq/L Carbon Dioxide 27 (21-32) mmol/L BUN 30 H (7-18) mg/dL Creatinine 2.6 H* (0.7-1.3) mg/dL Est Cr Clr Drug Dosing 20.83 mL/min Estimated GFR (MDRD) 24 L (>=60) mL/min Glucose 57 L (75-99) mg/dL POC Glucose 60 L (75-105) mg/dl Calcium 8.4 (8.4-10.1) mg/dL Total Bilirubin 0.4 (0.0-1.0) mg/dL AST 20 (15-37) U/L ALT 24 (12-78) U/L Alkaline Phosphatase 75 (46-116) U/L C-Reactive Protein 1.7 H (0.2-0.8) mg/dL Total Protein 6.9 (6.4-8.2) g/dL Albumin 3.0 L (3.4-5.0) g/dL Urine Color (YELLOW) Urine Appearance (CLEAR) Urine pH (4.5-8.0) Ur Specific [place] (1.003-1.020) Urine Protein (NEGATIVE) mg/dL Urine Glucose (UA) (NEGATIVE) mg/dL Urine Ketones (NEGATIVE) mg/dL Urine Occult Blood (NEGATIVE) Urine Nitrite (NEGATIVE) Urine Bilirubin (NEGATIVE) Urine Urobilinogen (0.2-1.0) EU/dL Ur Leukocyte Esterase (NEGATIVE) Urine RBC (0-5) /HPF Urine WBC (0-5) /HPF Med Orders - Current: Current Medications Acetaminophen (Tylenol) 650 mg PO Q4H PRN PRN Reason: Pain (Mild 1-3)/fever Atorvastatin Calcium (Lipitor) 20 mg PO BEDTIME [facility] Last Admin: 04/25/18 20:07 Dose: 20 mg Enoxaparin Sodium (Lovenox) 30 mg SUBCUT DAILY@1600 [facility] Last Admin: 04/25/18 15:18 Dose: 30 mg Furosemide (Lasix) 40 mg PO DAILY [facility] Last Admin: 04/26/18 07:26 Dose: 40 mg Sodium Chloride (Normal Saline) 1,000 mls @ 500 mls/hr IV .BOLUS [facility] Last Admin: 04/26/18 11:24 Dose: 500 mls/hr Clindamycin Phosphate 300 mg/ (Premix) 50 mls @ 100 mls/hr IV 0000,0600,1200, 1800 [facility] Last Admin: 04/26/18 11:30 Dose: 100 mls/hr Sodium Chloride (Normal Saline) 1,000 mls @ 75 mls/hr IV ASDIRECTED [facility] Insulin Aspart (Novolog) 20 unit SUBCUT 0800,1200 [facility] Last Admin: 04/26/18 11:38 Dose: Not Given Insulin Detemir (Levemir) 25 unit SUBCUT BEDTIME [facility] Last Admin: 04/25/18 20:16 Dose: 25 units Insulin Detemir (Levemir) 30 unit SUBCUT DAILY [facility] Last Admin: 04/26/18 07:29 Dose: 30 units Lisinopril (Prinivil) 2.5 mg PO DAILY [facility] Last Admin: 04/26/18 07:26 Dose: 2.5 mg Magnesium Hydroxide (Milk Of Magnesia) 30 ml PO Q12H PRN PRN Reason: Constipation Metoprolol Succinate (Toprol Xl) 25 mg PO DAILY [facility] Last Admin: 04/26/18 07:33 Dose: 25 mg Nitroglycerin (Nitrostat) 0.4 mg SL Q5M PRN PRN Reason: Chest Pain Non-Formulary Medication (Niacin [Niaspan]) 1,000 mg PO BEDTIME [facility] Oxybutynin Chloride (Oxybutynin) 5 mg PO BID [facility] Last Admin: 04/26/18 07:26 Dose: 5 mg Potassium Chloride (Potassium Chloride Solution) 20 meq PO DAILY [facility] Last Admin: 04/26/18 07:26 Dose: 20 meq Spironolactone (Aldactone) 25 mg PO DAILY [facility] Last Admin: 04/26/18 07:26 Dose: 25 mg Temazepam (Restoril) 15 mg PO BEDTIME PRN PRN Reason: Sleep Discontinued Medications Sodium Chloride (Normal Saline) 250 mls @ 500 mls/hr IV ASDIRECTED [facility] Sodium Chloride (Normal Saline) 1,000 mls @ 500 mls/hr IV ASDIRECTED [facility] Clindamycin Phosphate 300 mg/ (Premix) 50 mls @ 100 mls/hr IV Q6H [facility] Last Admin: 04/26/18 05:30 Dose: 100 mls/hr Insulin Detemir (Levemir) 30 unit SUBCUT QAM [facility] Insulin Detemir (Levemir) 25 unit SUBCUT QPM [facility] - Exam Quality Assessment: DVT Prophylaxis, Skin Breakdown (scattered scabs) General: Alert, Oriented, No Acute Distress Neck: Supple Lungs: Clear to Auscultation, Normal Respiratory Effort, Decreased Breath Sounds (decreased bases) Cardiovascular: Regular Rate, Irregular Rhythm GI/Abdominal Exam: Normal Bowel Sounds, Soft, Non-Tender, No Organomegaly, No Distention, No Abnormal Bruit, No Mass, Pelvis Stable Back Exam: Normal Inspection, Full Range of Motion. No: CVA Tenderness (L), CVA Tenderness (R) Extremities: Normal Range of Motion, Non-Tender, Pedal Edema (2+ to LLE 1+ to RLE- pitting), Slow Capillary Refill. No: Increased Warmth, Redness Peripheral Pulses: 1+: Dorsalis Pedis (L), Dorsalis Pedis (R) Skin: Warm, Dry, Other (scattered scabs) Neurological: No New Focal Deficit Psy/Mental Status: Alert, Normal Affect, Normal Mood - Problem List & Annotations (1) Acute on chronic renal insufficiency SNOMED Code(s): 582268748 Code(s): N28.9 - DISORDER OF KIDNEY AND URETER, UNSPECIFIED; N18.9 - CHRONIC KIDNEY DISEASE, UNSPECIFIED Status: Acute Current Visit: Yes (2) Type II diabetes mellitus SNOMED Code(s): 75743984 Code(s): E11.9 - TYPE 2 DIABETES MELLITUS WITHOUT COMPLICATIONS Status: Chronic Current Visit: Yes Qualifiers: 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 Diabetes mellitus complication status: with kidney complications Diabetes mellitus complication detail: with chronic kidney disease Chronic kidney disease stage : stage 3 (moderate) Qualified Code(s): E11.22 - Type 2 diabetes mellitus with diabetic chronic kidney disease; N18.3 - Chronic kidney disease, stage 3 ( moderate); Z79.4 - shelter (current) use of insulin (3) Cellulitis of left foot SNOMED Code(s): 617515672 Code(s): L03.116 - CELLULITIS OF LEFT LOWER LIMB Status: Acute Current Visit: Yes (4) Hypertension SNOMED Code(s): 04358119 Code(s): I10 - ESSENTIAL (PRIMARY) HYPERTENSION Status: Acute Current Visit: Yes Qualifiers: Hypertension type: essential hypertension Qualified Code(s): I10 - Essential (primary) hypertension - Problem List Review Problem List Initiated/Reviewed/Updated: Yes - My Orders Last 24 Hours: My Active Orders 04/25/18 14:35 Patient Status [ADT] Routine Oxygen Therapy [RC] .PRN Pulse Oximetry [RC] .PRN Up With Assistance [RC] .PRN Vital Signs [RC] 0000,0400,0800,1200,1600,2000 Acetaminophen [Tylenol] 650 mg PO Q4H PRN Magnesium Hydroxide [Milk of Magnesia] 30 ml PO Q12H PRN Nitroglycerin [Nitrostat] 0.4 mg SL Q5M PRN Sodium Chloride 0.9% [Normal Saline] 1,000 ml IV .BOLUS Temazepam [Restoril] 15 mg PO BEDTIME PRN 04/25/18 15:00 Enoxaparin [Lovenox] 30 mg SUBCUT DAILY@1600 04/25/18 20:00 Insulin Detemir [Levemir] 25 unit SUBCUT BEDTIME Niacin [Niaspan] 1,000 mg PO BEDTIME Oxybutynin 5 mg PO BID atorvaSTATin [Lipitor] 20 mg PO BEDTIME 04/25/18 Dinner Consistent Carbohydrate Diet [DIET] 04/26/18 08:00 Furosemide [Lasix] 40 mg PO DAILY Insulin Aspart [NovoLOG] 20 unit SUBCUT 0800,1200 Insulin Detemir [Levemir] 30 unit SUBCUT DAILY Lisinopril [Prinivil] 2.5 mg PO DAILY Metoprolol Succinate [Toprol XL] 25 mg PO DAILY Potassium Chloride [Potassium Chloride Solution] 20 meq PO DAILY Spironolactone [Aldactone] 25 mg PO DAILY 04/26/18 10:17 Blood Glucose Check, Bedside [RC] WITHMEALSANDBED 04/26/18 10:30 Sodium Chloride 0.9% [Normal Saline] 1,000 ml IV ASDIRECTED 04/26/18 12:00 Clindamycin Phosphate in D5W [Cleocin in D5W] 300 mg Premix Bag 1 bag IV 0000, 0600,1200,1800 - Plan Plan:: Acute on Chronic Renal Insufficiency Creatinine improved from 2.8 to 2.6 today. Will initiate gentle IV hydration and recheck labs in am. LLE Cellulitis Redness and warmth to left foot have improved. Foot no longer appears reddened. WBC normal at 5.4. CRP remains at 1.7. Type II DM Blood sugars on the lower end of normal. We will stop his 20 units Novolog with meals and switch to high dose SSI instead. He is unsure of the amount of Novolog he normally takes, but he thinks its 2 units with meals. Chart review indicates 20 units Novolog. Hypertension VSS. Continue current home medications Anticipated discharge 1-2 days when kidney function returns to baseline. Patient continues to require IVF and IV antibiotics.
[2018-04-26] MEDS: NIACIN 1000 MG PO SCH ×2 (12:25→20:24)
[2018-04-26] MEDS: Potassium Chloride 10 MEQ Tab.ER PO SCH (16:56)
[2018-04-26] MEDS: Enoxaparin 30 MG/0.3 ML Syringe SUBCUT SCH (16:56)
[2018-04-26] MEDS: atorvaSTATin 20 MG Tab PO SCH (20:24)
[2018-04-27] MEDS: Sodium Chloride 0.9% 1,000 ML IV SCH ×2 (04:19→17:52)
[2018-04-27] MEDS: Clindamycin Phosphate in D5W 300 MG in Premix Bag 1 BAG IV SCH ×2 (05:28)
[2018-04-27] MEDS: Potassium Chloride 10 MEQ Tab.ER PO SCH ×2 (07:50→17:06)
[2018-04-27] MEDS: Oxybutynin 5 MG Tab PO SCH ×2 (07:50→19:39)
[2018-04-27] MEDS: Spironolactone 25 MG Tab PO SCH (07:50)
[2018-04-27] MEDS: Lisinopril 5 MG Tab PO SCH (07:51)
[2018-04-27] MEDS: Metoprolol Succinate 25 MG Tab.ER PO SCH (07:51)
[2018-04-27] MEDS: Furosemide 20 MG Tab PO SCH (07:53)
[2018-04-27] MEDS: Insulin Detemir 100 Units/ML 3 ML Pen SUBCUT SCH ×2 (07:54→20:53)
[2018-04-27] MEDS: Insulin Aspart 100 Units/ML 3 ML Pen SUBCUT SCH ×4 (08:11→20:54)
--- NOTE | 2018-04-27 08:44 | PCM.PN ---
- General Info Date of Service: 04/27/18 Admission Dx/Problem (Free Text): LLE Cellulitis Acute on Chronic Renal Insufficiency Subjective Update: Ralf reports he is feeling well today. He does not have any complaints at time of rounds. He is resting comfortably in his chair eating breakfast. He denies any pain. He reports he did have an upset stomach last night after drinking a Coke, but otherwise has been doing well. He does not have any shortness of breath at rest. Reports he does get winded with activity, per his baseline. He reports his left foot is doing better and no longer red or warm. No fever or chills. VSS on RA. Functional Status: Reports: Pain Controlled, Tolerating Diet, Ambulating, Urinating. Denies: New Symptoms - Review of Systems General: Denies: Fever, Weakness, Fatigue, Chills HEENT: Reports: No Symptoms Pulmonary: Reports: No Symptoms. Denies: Shortness of Breath, Cough, Sputum Cardiovascular: Reports: Dyspnea on Exertion, Edema. Denies: Chest Pain, Orthopnea Gastrointestinal: Reports: No Symptoms. Denies: Abdominal Pain, Constipation, Decreased Appetite, Diarrhea, Hematochezia, Melena, Nausea, Vomiting Genitourinary: Reports: Incontinence. Denies: Dysuria, Urgency Musculoskeletal: Reports: No Symptoms Skin: Reports: Dryness Neurological: Reports: No Symptoms Psychiatric: Reports: No Symptoms - Patient Data Vitals - Most Recent: Last Vital Signs Temp 97.3 F 04/27/18 07:47 Pulse 88 04/27/18 07:51 Resp 20 04/27/18 07:47 BP 136/57 L 04/27/18 07:51 Pulse Ox 97 04/27/18 07:47 Weight - Most Recent: 240 lb 12.8 oz I&O - Last 24 Hours: Intake & Output 04/26/18 04/27/18 04/27/18 22:59 06:59 14:59 Intake Total 50 1050 Balance 50 1050 Lab Results Last 24 Hours: Laboratory Results - last 24 hr 04/26/18 04/26/18 04/26/18 Range/Units 09:58 09:58 10:16 WBC 5.4 (5.0-10.0) 10^3/uL RBC 4.01 L (4.50-6.00) 10^6/uL Hgb 12.2 L (14.0-18.0) g/dL Hct 37.8 L (40.0-54.0) % MCV 94.3 H (82.0-94.0) fL MCH 30.4 (27.0-32.0) pg MCHC 32.3 L (33.0-38.0) g/dL RDW Coeff of Alem 13.4 (11.0-15.0) % Plt Count 181 (150-400) 10^3/uL Neut % (Auto) 64.5 (35-85) % Lymph % (Auto) 17.3 (10-55) % [place] % (Auto) 13.6 (0-16) % Eos % (Auto) 3.5 (0-5) % Baso % (Auto) 1.1 (0-3) % Neut # (Auto) 3.47 (1.80-7.00) 10^3/uL Lymph # (Auto) 0.93 L (1.00-4.80) 10^3/uL [place] # (Auto) 0.73 (0.00-0.80) 10^3/uL Eos # (Auto) 0.19 (0.00-0.45) 10^3/uL Baso # (Auto) 0.06 10^3/uL Sodium 139 (136-145) mEq/L Potassium 4.8 (3.5-5.0) mEq/L Chloride 105 (98-106) mEq/L Carbon Dioxide 27 (21-32) mmol/L BUN 30 H (7-18) mg/dL Creatinine 2.6 H* (0.7-1.3) mg/dL Est Cr Clr Drug Dosing 20.83 mL/min Estimated GFR (MDRD) 24 L (>=60) mL/min Glucose 57 L (75-99) mg/dL POC Glucose (75-105) mg/dl Calcium 8.4 (8.4-10.1) mg/dL Total Bilirubin 0.4 (0.0-1.0) mg/dL AST 20 (15-37) U/L ALT 24 (12-78) U/L Alkaline Phosphatase 75 (46-116) U/L C-Reactive Protein 1.7 H (0.2-0.8) mg/dL Total Protein 6.9 (6.4-8.2) g/dL Albumin 3.0 L (3.4-5.0) g/dL 04/26/18 04/26/18 04/26/18 Range/Units 11:23 17:27 20:46 WBC (5.0-10.0) 10^3/uL RBC (4.50-6.00) 10^6/uL Hgb (14.0-18.0) g/dL Hct (40.0-54.0) % MCV (82.0-94.0) fL MCH (27.0-32.0) pg MCHC (33.0-38.0) g/dL RDW Coeff of Alem (11.0-15.0) % Plt Count (150-400) 10^3/uL Neut % (Auto) (35-85) % Lymph % (Auto) (10-55) % [place] % (Auto) (0-16) % Eos % (Auto) (0-5) % Baso % (Auto) (0-3) % Neut # (Auto) (1.80-7.00) 10^3/uL Lymph # (Auto) (1.00-4.80) 10^3/uL [place] # (Auto) (0.00-0.80) 10^3/uL Eos # (Auto) (0.00-0.45) 10^3/uL Baso # (Auto) 10^3/uL Sodium (136-145) mEq/L Potassium (3.5-5.0) mEq/L Chloride (98-106) mEq/L Carbon Dioxide (21-32) mmol/L BUN (7-18) mg/dL Creatinine (0.7-1.3) mg/dL Est Cr Clr Drug Dosing mL/min Estimated GFR (MDRD) (>=60) mL/min Glucose (75-99) mg/dL POC Glucose 60 L 85 178 H (75-105) mg/dl Calcium (8.4-10.1) mg/dL Total Bilirubin (0.0-1.0) mg/dL AST (15-37) U/L ALT (12-78) U/L Alkaline Phosphatase (46-116) U/L C-Reactive Protein (0.2-0.8) mg/dL Total Protein (6.4-8.2) g/dL Albumin (3.4-5.0) g/dL 04/27/18 04/27/18 04/27/18 Range/Units 08:04 08:04 08:05 WBC 5.9 (5.0-10.0) 10^3/uL RBC 4.07 L (4.50-6.00) 10^6/uL Hgb 12.5 L (14.0-18.0) g/dL Hct 38.9 L (40.0-54.0) % MCV 95.6 H (82.0-94.0) fL MCH 30.7 (27.0-32.0) pg MCHC 32.1 L (33.0-38.0) g/dL RDW Coeff of Alem 13.4 (11.0-15.0) % Plt Count 188 (150-400) 10^3/uL Neut % (Auto) 55.6 (35-85) % Lymph % (Auto) 26.1 (10-55) % [place] % (Auto) 13.7 (0-16) % Eos % (Auto) 3.6 (0-5) % Baso % (Auto) 1.0 (0-3) % Neut # (Auto) 3.29 (1.80-7.00) 10^3/uL Lymph # (Auto) 1.54 (1.00-4.80) 10^3/uL [place] # (Auto) 0.81 H (0.00-0.80) 10^3/uL Eos # (Auto) 0.21 (0.00-0.45) 10^3/uL Baso # (Auto) 0.06 10^3/uL Sodium 137 (136-145) mEq/L Potassium 4.5 (3.5-5.0) mEq/L Chloride 105 (98-106) mEq/L Carbon Dioxide 28 (21-32) mmol/L BUN 26 H (7-18) mg/dL Creatinine 2.3 H (0.7-1.3) mg/dL Est Cr Clr Drug Dosing 23.54 mL/min Estimated GFR (MDRD) 27 L (>=60) mL/min Glucose 129 H D (75-99) mg/dL POC Glucose 154 H (75-105) mg/dl Calcium 8.2 L (8.4-10.1) mg/dL Total Bilirubin (0.0-1.0) mg/dL AST (15-37) U/L ALT (12-78) U/L Alkaline Phosphatase (46-116) U/L C-Reactive Protein 1.3 H (0.2-0.8) mg/dL Total Protein (6.4-8.2) g/dL Albumin (3.4-5.0) g/dL Med Orders - Current: Current Medications Acetaminophen (Tylenol) 650 mg PO Q4H PRN PRN Reason: Pain (Mild 1-3)/fever Atorvastatin Calcium (Lipitor) 20 mg PO BEDTIME [facility] Last Admin: 04/26/18 20:24 Dose: 20 mg Enoxaparin Sodium (Lovenox) 30 mg SUBCUT DAILY@1600 [facility] Last Admin: 04/26/18 16:56 Dose: 30 mg Furosemide (Lasix) 40 mg PO DAILY [facility] Last Admin: 04/27/18 07:53 Dose: 40 mg Clindamycin Phosphate 300 mg/ (Premix) 50 mls @ 100 mls/hr IV 0000,0600,1200, 1800 [facility] Last Admin: 04/27/18 05:28 Dose: 100 mls/hr Sodium Chloride (Normal Saline) 1,000 mls @ 75 mls/hr IV ASDIRECTED [facility] Last Admin: 04/27/18 04:19 Dose: 75 mls/hr Insulin Aspart (Novolog) 0 unit SUBCUT WITHMEALSANDBED [facility]; Protocol Last Admin: 04/27/18 08:11 Dose: 3 units Insulin Detemir (Levemir) 25 unit SUBCUT BEDTIME [facility] Last Admin: 04/26/18 20:51 Dose: 25 units Insulin Detemir (Levemir) 30 unit SUBCUT DAILY [facility] Last Admin: 04/27/18 07:54 Dose: 30 units Lisinopril (Prinivil) 2.5 mg PO DAILY [facility] Last Admin: 04/27/18 07:51 Dose: 2.5 mg Magnesium Hydroxide (Milk Of Magnesia) 30 ml PO Q12H PRN PRN Reason: Constipation Metoprolol Succinate (Toprol Xl) 25 mg PO DAILY [facility] Last Admin: 04/27/18 07:51 Dose: 25 mg Nitroglycerin (Nitrostat) 0.4 mg SL Q5M PRN PRN Reason: Chest Pain Niacin [Niaspan] 1, (000 Mg) 1,000 mg PO BEDTIME [facility] Last Admin: 04/26/18 20:24 Dose: 1,000 mg Oxybutynin Chloride (Oxybutynin) 5 mg PO BID [facility] Last Admin: 04/27/18 07:50 Dose: 5 mg Potassium Chloride (Klor-Con 10) 20 meq PO BIDMEALS [facility] Last Admin: 04/27/18 07:50 Dose: 20 meq Spironolactone (Aldactone) 25 mg PO DAILY [facility] Last Admin: 04/27/18 07:50 Dose: 25 mg Temazepam (Restoril) 15 mg PO BEDTIME PRN PRN Reason: Sleep Discontinued Medications Sodium Chloride (Normal Saline) 1,000 mls @ 500 mls/hr IV .BOLUS [facility] Last Admin: 04/26/18 11:24 Dose: 500 mls/hr Sodium Chloride (Normal Saline) 250 mls @ 500 mls/hr IV ASDIRECTED [facility] Sodium Chloride (Normal Saline) 1,000 mls @ 500 mls/hr IV ASDIRECTED [facility] Clindamycin Phosphate 300 mg/ (Premix) 50 mls @ 100 mls/hr IV Q6H [facility] Last Admin: 04/26/18 05:30 Dose: 100 mls/hr Insulin Aspart (Novolog) 20 unit SUBCUT 0800,1200 [facility] Last Admin: 04/26/18 11:38 Dose: Not Given Insulin Detemir (Levemir) 30 unit SUBCUT QAM [facility] Insulin Detemir (Levemir) 25 unit SUBCUT QPM [facility] Potassium Chloride (Potassium Chloride Solution) 20 meq PO DAILY [facility] Last Admin: 04/26/18 07:26 Dose: 20 meq - Exam Quality Assessment: DVT Prophylaxis General: Alert, Oriented, No Acute Distress Neck: Supple Lungs: Clear to Auscultation, Normal Respiratory Effort, Crackles (LLL) Cardiovascular: Regular Rate, No Murmurs, Irregular Rhythm GI/Abdominal Exam: Normal Bowel Sounds, Soft, Non-Tender, No Organomegaly, No Distention, No Abnormal Bruit, No Mass, Pelvis Stable Back Exam: Normal Inspection, Full Range of Motion. No: CVA Tenderness (L), CVA Tenderness (R) Extremities: Normal Range of Motion, Non-Tender, Normal Capillary Refill, Pedal Edema (2+ pitting to LLL, 1+ pitting to RLE). No: Leg Pain, Increased Warmth, Redness Peripheral Pulses: 2+: Posterior Tibial (L), Posterior Tibial (R), Dorsalis Pedis (L), Dorsalis Pedis (R) Skin: Warm, Dry, Other (scattered scabs) Wound/Incisions: Healing Well Neurological: No New Focal Deficit Psy/Mental Status: Alert, Normal Affect, Normal Mood - Problem List & Annotations (1) Acute on chronic renal insufficiency SNOMED Code(s): 516038721 Code(s): N28.9 - DISORDER OF KIDNEY AND URETER, UNSPECIFIED; N18.9 - CHRONIC KIDNEY DISEASE, UNSPECIFIED Status: Acute Current Visit: Yes (2) Type II diabetes mellitus SNOMED Code(s): 62405624 Code(s): E11.9 - TYPE 2 DIABETES MELLITUS WITHOUT COMPLICATIONS Status: Chronic Current Visit: Yes Qualifiers: Diabetes mellitus intermediate project manager insulin use: with snf use Diabetes mellitus complication status: with kidney complications Diabetes mellitus complication detail: with chronic kidney disease Chronic kidney disease stage : stage 3 (moderate) Qualified Code(s): E11.22 - Type 2 diabetes mellitus with diabetic chronic kidney disease; N18.3 - Chronic kidney disease, stage 3 ( moderate); Z79.4 - intermediate (current) use of insulin (3) Cellulitis of left foot SNOMED Code(s): 177270830 Code(s): L03.116 - CELLULITIS OF LEFT LOWER LIMB Status: Acute Current Visit: Yes (4) Hypertension SNOMED Code(s): 76720766 Code(s): I10 - ESSENTIAL (PRIMARY) HYPERTENSION Status: Acute Current Visit: Yes Qualifiers: Hypertension type: essential hypertension Qualified Code(s): I10 - Essential (primary) hypertension - Problem List Review Problem List Initiated/Reviewed/Updated: Yes - My Orders Last 24 Hours: My Active Orders 04/26/18 08:00 Furosemide [Lasix] 40 mg PO DAILY Insulin Detemir [Levemir] 30 unit SUBCUT DAILY Lisinopril [Prinivil] 2.5 mg PO DAILY Metoprolol Succinate [Toprol XL] 25 mg PO DAILY Spironolactone [Aldactone] 25 mg PO DAILY 04/26/18 10:17 Blood Glucose Check, Bedside [RC] 0730,1130,1700,2100 04/26/18 10:30 Sodium Chloride 0.9% [Normal Saline] 1,000 ml IV ASDIRECTED 04/26/18 12:00 Clindamycin Phosphate in D5W [Cleocin in D5W] 300 mg Premix Bag 1 bag IV 0000, 0600,1200,1800 04/26/18 17:30 Insulin Aspart [NovoLOG] See Protocol SUBCUT WITHMEALSANDBED Potassium Chloride [Klor-Con 10] 20 meq PO BIDMEALS 04/28/18 07:43 BMP [BASIC METABOLIC PANEL,BMP] [CHEM] DAILY - Plan Plan:: Acute on Chronic Renal Insufficiency Creatinine improved from 2.6 to 2.3 today. Will continue gentle IV hydration and recheck labs in am. LLE Cellulitis Resolved. Left foot is no longer reddened or warm to touch. Will discontinue antibiotics. WBC normal at 5.9. CRP down to 1.3. No fever. Type II DM Continue home insulin plus high dose SSI. Home dose Novolog was discontinued yesterday. Nursing staff did speak with patient's [facility] nursing staff, who report he typically goes to the [employer] machine multiple times a day and this is likely why he requires more insulin while there. Hypertension VS stable. Continue home medications. Anticipate discharge 1-2 days when kidney function returns to baseline. Patient still requiring IVF.
[2018-04-27] MEDS: Enoxaparin 30 MG/0.3 ML Syringe SUBCUT SCH (16:58)
[2018-04-27] MEDS: atorvaSTATin 20 MG Tab PO SCH (19:39)
[2018-04-27] MEDS: NIACIN 1000 MG PO SCH (19:41)
[2018-04-28] MEDS: Sodium Chloride 0.9% 1,000 ML IV SCH (07:46)
[2018-04-28] MEDS: Insulin Detemir 100 Units/ML 3 ML Pen SUBCUT SCH ×2 (07:51→20:28)
[2018-04-28] MEDS: Potassium Chloride 10 MEQ Tab.ER PO SCH ×2 (07:52→17:33)
[2018-04-28] MEDS: Furosemide 20 MG Tab PO SCH (07:53)
[2018-04-28] MEDS: Metoprolol Succinate 25 MG Tab.ER PO SCH (07:53)
[2018-04-28] MEDS: Oxybutynin 5 MG Tab PO SCH ×2 (07:53→19:32)
[2018-04-28] MEDS: Spironolactone 25 MG Tab PO SCH (07:54)
[2018-04-28] MEDS: Lisinopril 5 MG Tab PO SCH (07:54)
[2018-04-28] MEDS: Insulin Aspart 100 Units/ML 3 ML Pen SUBCUT SCH ×4 (07:55→20:29)
--- NOTE | 2018-04-28 15:48 | PCM.PN ---
- General Info Date of Service: 04/28/18 Admission Dx/Problem (Free Text): LLE Cellulitis Acute on Chronic Renal Insufficiency Subjective Update: Patient reports he is having some right flank/right upper quadrant abdominal pain this morning. He reports it feels similar to pain he has had in the past. He reports it just started this morning and hasn't been there the past few days. He denies any N/V/D. Has not had fever or chills. He denies any shortness of breath at rest. Does report baseline dyspnea with exertion. Swelling in his legs has remained the same. He has no additional complaints. Functional Status: Reports: Pain Controlled, Tolerating Diet, Ambulating, Urinating, New Symptoms (RUQ abdominal pain) - Review of Systems General: Reports: No Symptoms. Denies: Fever, Weakness, Fatigue, Chills Pulmonary: Denies: Shortness of Breath, Pleuritic Chest Pain, Cough, Sputum, Wheezing Cardiovascular: Reports: Dyspnea on Exertion, Edema. Denies: Chest Pain, Palpitations, Lightheadedness Gastrointestinal: Reports: Abdominal Pain (RUQ). Denies: Constipation, Decreased Appetite, Diarrhea, Nausea, Vomiting Genitourinary: Reports: No Symptoms. Denies: Dysuria, Frequency, Urgency Musculoskeletal: Reports: No Symptoms Skin: Reports: No Symptoms Neurological: Reports: No Symptoms Psychiatric: Reports: No Symptoms - Patient Data Vitals - Most Recent: Last Vital Signs Temp 96.8 F 04/28/18 11:37 Pulse 81 04/28/18 11:37 Resp 20 04/28/18 11:37 BP 140/54 L 04/28/18 11:37 Pulse Ox 96 04/28/18 11:37 Weight - Most Recent: 240 lb 12.8 oz I&O - Last 24 Hours: Intake & Output 04/28/18 04/28/18 04/28/18 06:59 14:59 22:59 Intake Total 1000 Balance 1000 Lab Results Last 24 Hours: Laboratory Results - last 24 hr 04/27/18 04/27/18 04/28/18 Range/Units 17:04 20:50 07:00 WBC (5.0-10.0) 10^3/uL RBC (4.50-6.00) 10^6/uL Hgb (14.0-18.0) g/dL Hct (40.0-54.0) % MCV (82.0-94.0) fL MCH (27.0-32.0) pg MCHC (33.0-38.0) g/dL RDW Coeff of Alem (11.0-15.0) % Plt Count (150-400) 10^3/uL Neut % (Auto) (35-85) % Lymph % (Auto) (10-55) % [place] % (Auto) (0-16) % Eos % (Auto) (0-5) % Baso % (Auto) (0-3) % Neut # (Auto) (1.80-7.00) 10^3/uL Lymph # (Auto) (1.00-4.80) 10^3/uL [place] # (Auto) (0.00-0.80) 10^3/uL Eos # (Auto) (0.00-0.45) 10^3/uL Baso # (Auto) 10^3/uL Sodium 141 (136-145) mEq/L Potassium 4.4 (3.5-5.0) mEq/L Chloride 107 H (98-106) mEq/L Carbon Dioxide 27 (21-32) mmol/L BUN 22 H (7-18) mg/dL Creatinine 2.0 H (0.7-1.3) mg/dL Est Cr Clr Drug Dosing 27.08 mL/min Estimated GFR (MDRD) 32 L (>=60) mL/min Glucose 88 D (75-99) mg/dL POC Glucose 179 H 237 H (75-105) mg/dl Calcium 8.2 L (8.4-10.1) mg/dL C-Reactive Protein 1.2 H (0.2-0.8) mg/dL 04/28/18 04/28/18 04/28/18 Range/Units 07:00 07:34 11:35 WBC 6.2 (5.0-10.0) 10^3/uL RBC 3.98 L (4.50-6.00) 10^6/uL Hgb 12.1 L (14.0-18.0) g/dL Hct 37.7 L (40.0-54.0) % MCV 94.7 H (82.0-94.0) fL MCH 30.4 (27.0-32.0) pg MCHC 32.1 L (33.0-38.0) g/dL RDW Coeff of Alem 13.3 (11.0-15.0) % Plt Count 188 (150-400) 10^3/uL Neut % (Auto) 57.4 (35-85) % Lymph % (Auto) 28.2 (10-55) % [place] % (Auto) 10.7 (0-16) % Eos % (Auto) 3.1 (0-5) % Baso % (Auto) 0.6 (0-3) % Neut # (Auto) 3.54 (1.80-7.00) 10^3/uL Lymph # (Auto) 1.74 (1.00-4.80) 10^3/uL [place] # (Auto) 0.66 (0.00-0.80) 10^3/uL Eos # (Auto) 0.19 (0.00-0.45) 10^3/uL Baso # (Auto) 0.04 10^3/uL Sodium (136-145) mEq/L Potassium (3.5-5.0) mEq/L Chloride (98-106) mEq/L Carbon Dioxide (21-32) mmol/L BUN (7-18) mg/dL Creatinine (0.7-1.3) mg/dL Est Cr Clr Drug Dosing mL/min Estimated GFR (MDRD) (>=60) mL/min Glucose (75-99) mg/dL POC Glucose 95 200 H (75-105) mg/dl Calcium (8.4-10.1) mg/dL C-Reactive Protein (0.2-0.8) mg/dL Med Orders - Current: Current Medications Acetaminophen (Tylenol) 650 mg PO Q4H PRN PRN Reason: Pain (Mild 1-3)/fever Atorvastatin Calcium (Lipitor) 20 mg PO BEDTIME [facility] Last Admin: 04/27/18 19:39 Dose: 20 mg Enoxaparin Sodium (Lovenox) 30 mg SUBCUT DAILY@1600 [facility] Last Admin: 04/27/18 16:58 Dose: 30 mg Furosemide (Lasix) 40 mg PO DAILY [facility] Last Admin: 04/28/18 07:53 Dose: 40 mg Insulin Aspart (Novolog) 0 unit SUBCUT WITHMEALSANDBED [facility]; Protocol Last Admin: 04/28/18 12:09 Dose: 6 units Insulin Detemir (Levemir) 25 unit SUBCUT BEDTIME [facility] Last Admin: 04/27/18 20:53 Dose: 25 units Insulin Detemir (Levemir) 30 unit SUBCUT DAILY [facility] Last Admin: 04/28/18 07:51 Dose: 30 units Lisinopril (Prinivil) 2.5 mg PO DAILY [facility] Last Admin: 04/28/18 07:54 Dose: 2.5 mg Magnesium Hydroxide (Milk Of Magnesia) 30 ml PO Q12H PRN PRN Reason: Constipation Metoprolol Succinate (Toprol Xl) 25 mg PO DAILY [facility] Last Admin: 04/28/18 07:53 Dose: 25 mg Nitroglycerin (Nitrostat) 0.4 mg SL Q5M PRN PRN Reason: Chest Pain Niacin [Niaspan] 1, (000 Mg) 1,000 mg PO BEDTIME [facility] Last Admin: 04/27/18 19:41 Dose: 1,000 mg Oxybutynin Chloride (Oxybutynin) 5 mg PO BID [facility] Last Admin: 04/28/18 07:53 Dose: 5 mg Potassium Chloride (Klor-Con 10) 20 meq PO BIDMEALS [facility] Last Admin: 04/28/18 07:52 Dose: 20 meq Temazepam (Restoril) 15 mg PO BEDTIME PRN PRN Reason: Sleep Discontinued Medications Sodium Chloride (Normal Saline) 1,000 mls @ 500 mls/hr IV .BOLUS [facility] Last Admin: 04/26/18 11:24 Dose: 500 mls/hr Sodium Chloride (Normal Saline) 250 mls @ 500 mls/hr IV ASDIRECTED [facility] Sodium Chloride (Normal Saline) 1,000 mls @ 500 mls/hr IV ASDIRECTED [facility] Clindamycin Phosphate 300 mg/ (Premix) 50 mls @ 100 mls/hr IV Q6H [facility] Last Admin: 04/26/18 05:30 Dose: 100 mls/hr Clindamycin Phosphate 300 mg/ (Premix) 50 mls @ 100 mls/hr IV 0000,0600,1200, 1800 [facility] Last Admin: 04/27/18 05:28 Dose: 100 mls/hr Sodium Chloride (Normal Saline) 1,000 mls @ 75 mls/hr IV ASDIRECTED [facility] Last Admin: 04/28/18 07:46 Dose: 75 mls/hr Insulin Aspart (Novolog) 20 unit SUBCUT 0800,1200 [facility] Last Admin: 04/26/18 11:38 Dose: Not Given Insulin Detemir (Levemir) 30 unit SUBCUT QAM [facility] Insulin Detemir (Levemir) 25 unit SUBCUT QPM [facility] Potassium Chloride (Potassium Chloride Solution) 20 meq PO DAILY [facility] Last Admin: 04/26/18 07:26 Dose: 20 meq Spironolactone (Aldactone) 25 mg PO DAILY [facility] Last Admin: 04/27/18 07:50 Dose: 25 mg - Exam Quality Assessment: DVT Prophylaxis General: Alert, Oriented, No Acute Distress Neck: Supple Lungs: Clear to Auscultation, Normal Respiratory Effort, Decreased Breath Sounds (bases) Cardiovascular: Irregular Rhythm GI/Abdominal Exam: Normal Bowel Sounds, Soft, No Organomegaly, Tender (RUQ/Flank ) Back Exam: Normal Inspection, Full Range of Motion. No: CVA Tenderness (L), CVA Tenderness (R) Extremities: Normal Capillary Refill, Pedal Edema (2+ pitting LLE, 1+ pitting RLE). No: Leg Pain, Increased Warmth, Redness Peripheral Pulses: 1+: Posterior Tibial (L), Posterior Tibial (R), Dorsalis Pedis (L), Dorsalis Pedis (R) Skin: Warm, Dry, Intact, Other (scattered scabs) Wound/Incisions: Healing Well Neurological: No New Focal Deficit Psy/Mental Status: Alert, Normal Affect, Normal Mood - Problem List & Annotations (1) Acute on chronic renal insufficiency SNOMED Code(s): 548976492 Code(s): N28.9 - DISORDER OF KIDNEY AND URETER, UNSPECIFIED; N18.9 - CHRONIC KIDNEY DISEASE, UNSPECIFIED Status: Acute Current Visit: Yes (2) Type II diabetes mellitus SNOMED Code(s): 45957404 Code(s): E11.9 - TYPE 2 DIABETES MELLITUS WITHOUT COMPLICATIONS Status: Chronic Current Visit: Yes Qualifiers: Diabetes mellitus intermediate insulin use: with intermediate use Diabetes mellitus complication status: with kidney complications Diabetes mellitus complication detail: with chronic kidney disease Chronic kidney disease stage : stage 3 (moderate) Qualified Code(s): E11.22 - Type 2 diabetes mellitus with diabetic chronic kidney disease; N18.3 - Chronic kidney disease, stage 3 ( moderate); Z79.4 - USP (current) use of insulin (3) Cellulitis of left foot SNOMED Code(s): 079865098 Code(s): L03.116 - CELLULITIS OF LEFT LOWER LIMB Status: Acute Current Visit: Yes (4) Hypertension SNOMED Code(s): 82384551 Code(s): I10 - ESSENTIAL (PRIMARY) HYPERTENSION Status: Acute Current Visit: Yes Qualifiers: Hypertension type: essential hypertension Qualified Code(s): I10 - Essential (primary) hypertension - Problem List Review Problem List Initiated/Reviewed/Updated: Yes - My Orders Last 24 Hours: My Active Orders 04/28/18 08:20 Abdomen Pelvis wo Cont [CT] Routine - Plan Plan:: Acute on Chronic Renal Insufficiency Creatinine improved from 2.3 to 2.0 today. Saline lock IV. Stop spironlactone. Monitor for fluid overload. Patient c/o right flank/RUQ abdominal pain this morning. CT abdomen/pelvis completed and negative for any acute findings. Tylenol as needed for pain. LLE Cellulitis Resolved. Left foot is no longer reddened or warm to touch. Not currently on antibiotics. WBC 6.2. CRP 1.2. Afebrile. Type II DM Continue home insulin plus high dose SSI. Home dose Novolog was discontinued. Nursing staff did speak with patient's [facility] nursing staff, who report he typically goes to the [employer] and vending machine multiple times a day and this is likely why he requires more insulin while there. Hypertension VS stable. Continue home medications. Anticipate discharge tomorrow back to [facility] in [place]. Recheck labs in am. Discontinue spironlactone upon discharge.
[2018-04-28] MEDS: Enoxaparin 30 MG/0.3 ML Syringe SUBCUT SCH (16:03)
[2018-04-28] MEDS: atorvaSTATin 20 MG Tab PO SCH (19:32)
[2018-04-28] MEDS: NIACIN 1000 MG PO SCH (19:33)
[2018-04-29 07:34] VITALS: BP 128/84
[2018-04-29] MEDS: Furosemide 20 MG Tab PO SCH (08:27)
[2018-04-29] MEDS: Potassium Chloride 10 MEQ Tab.ER PO SCH (08:27)
[2018-04-29] MEDS: Metoprolol Succinate 25 MG Tab.ER PO SCH (08:27)
[2018-04-29] MEDS: Oxybutynin 5 MG Tab PO SCH (08:28)
[2018-04-29] MEDS: Lisinopril 5 MG Tab PO SCH (08:28)
[2018-04-29] MEDS: Insulin Aspart 100 Units/ML 3 ML Pen SUBCUT SCH (08:29)
[2018-04-29] MEDS: Insulin Detemir 100 Units/ML 3 ML Pen SUBCUT SCH (08:30)
--- NOTE | 2018-04-29 09:00 | PCM.DCSUM1 ---
Discharge Summary - Hospital Course HPI Initial Comments: This patient was admitted to the hospital for LLE cellulitis. Patient has made significant progress with this. Patient has continue abx tx in the hospital. THe redness is nearly gone, small to the left top of the foot. Patient reports that he feels much better and would like to go home. The patient patient denies parra, dizziness, n, v, d, f, cp, soa, abd pain, urinary/bowel changes. He is alert and oriented. Pulses +2, cap refill <2 sec, sensory/motor function intact. Neurovascular intact. WBC normal. CR improved from baseline. Stable. - Discharge Data Discharge Date: 04/29/18 Discharge Disposition: Home, Self-Care 01 Condition: Good - Patient Instructions Diet: Usual Diet as Tolerated Activity: As Tolerated Driving: Do Not Drive Showering/Bathing: May Shower Notify Provider of: Fever, Increased Pain, Swelling and Redness, Drainage, Nausea and/or Vomiting - Discharge Plan Home Medications: Home Meds Furosemide [Lasix] 40 mg PO ASDIRECTED 01/20/14 [History] Insulin Aspart [Novolog Flexpen] 20 units SUBCUT 08,12 01/20/14 [History] Insulin Detemir [Levemir Flexpen] 25 units SUBCUT QPM 01/20/14 [History] Lisinopril [Prinivil] 2.5 mg PO DAILY 01/20/14 [History] Niacin [Niaspan] 1,000 mg PO BEDTIME 01/20/14 [History] Oxybutynin 5 mg PO BID 01/20/14 [History] atorvaSTATin [Lipitor] 20 mg PO BEDTIME 01/20/14 [History] Insulin Detemir [Levemir] 30 unit SUBCUT QAM 01/21/14 [History] Potassium Chloride 15 ml PO DAILY 01/21/14 [History] Nitroglycerin [Nitrostat] 0.4 mg SL Q5M PRN 02/14/17 [History] Spironolactone [Aldactone] 25 mg PO DAILY 02/14/17 [History] Metoprolol Succinate [Toprol XL] 25 mg PO DAILY tab.er 02/18/17 [Rx] Insulin Detemir [Levemir] 25 unit SUBCUT BEDTIME 04/25/18 [History] Insulin Detemir [Levemir] 30 unit SUBCUT ACBREAKFAST 04/25/18 [History] Sulfamethoxazole/Trimethoprim [Sulfatrim 800-160 mg/20 ml Tracie] 20 ml PO DAILY [History] Forms: ED Department Discharge Referrals: PCP,None [Primary Care Provider] - - Discharge Summary/Plan Comment DC Time >30 min.: No Discharge Summary/Plan Comment: Followup with your primary care provider within 3 days Return to the ER for worsening of condition or any emergent concerns Return to the ER for redness, heat, drainage, fever, or any other concerns - General Info Date of Service: 04/29/18 Functional Status: Reports: Pain Controlled, Tolerating Diet, Ambulating - Review of Systems General: Reports: No Symptoms HEENT: Reports: No Symptoms Pulmonary: Reports: No Symptoms Cardiovascular: Reports: No Symptoms Gastrointestinal: Reports: No Symptoms Genitourinary: Reports: No Symptoms Musculoskeletal: Reports: No Symptoms Skin: Reports: No Symptoms Neurological: Reports: No Symptoms Psychiatric: Reports: No Symptoms - Patient Data Vitals - Most Recent: Last Vital Signs Temp 97.8 F 04/29/18 07:33 Pulse 72 04/29/18 08:27 Resp 20 04/29/18 07:33 BP 128/84 04/29/18 08:28 Pulse Ox 98 04/29/18 07:33 Weight - Most Recent: 240 lb 12.8 oz Lab Results - Last 24 hrs: Laboratory Results - last 24 hr 04/28/18 04/28/18 04/28/18 Range/Units 11:35 17:02 19:59 WBC (5.0-10.0) 10^3/uL RBC (4.50-6.00) 10^6/uL Hgb (14.0-18.0) g/dL Hct (40.0-54.0) % MCV (82.0-94.0) fL MCH (27.0-32.0) pg MCHC (33.0-38.0) g/dL RDW Coeff of Alem (11.0-15.0) % Plt Count (150-400) 10^3/uL Neut % (Auto) (35-85) % Lymph % (Auto) (10-55) % [place] % (Auto) (0-16) % Eos % (Auto) (0-5) % Baso % (Auto) (0-3) % Neut # (Auto) (1.80-7.00) 10^3/uL Lymph # (Auto) (1.00-4.80) 10^3/uL [place] # (Auto) (0.00-0.80) 10^3/uL Eos # (Auto) (0.00-0.45) 10^3/uL Baso # (Auto) 10^3/uL Sodium (136-145) mEq/L Potassium (3.5-5.0) mEq/L Chloride (98-106) mEq/L Carbon Dioxide (21-32) mmol/L BUN (7-18) mg/dL Creatinine (0.7-1.3) mg/dL Est Cr Clr Drug Dosing mL/min Estimated GFR (MDRD) (>=60) mL/min Glucose (75-99) mg/dL POC Glucose 200 H 193 H 179 H (75-105) mg/dl Calcium (8.4-10.1) mg/dL C-Reactive Protein (0.2-0.8) mg/dL 04/29/18 04/29/18 04/29/18 Range/Units 07:32 08:00 08:00 WBC 6.8 (5.0-10.0) 10^3/uL RBC 4.17 L (4.50-6.00) 10^6/uL Hgb 12.7 L (14.0-18.0) g/dL Hct 39.5 L (40.0-54.0) % MCV 94.7 H (82.0-94.0) fL MCH 30.5 (27.0-32.0) pg MCHC 32.2 L (33.0-38.0) g/dL RDW Coeff of Alem 13.4 (11.0-15.0) % Plt Count 212 (150-400) 10^3/uL Neut % (Auto) 63.0 (35-85) % Lymph % (Auto) 24.1 (10-55) % [place] % (Auto) 9.4 (0-16) % Eos % (Auto) 2.8 (0-5) % Baso % (Auto) 0.7 (0-3) % Neut # (Auto) 4.31 (1.80-7.00) 10^3/uL Lymph # (Auto) 1.65 (1.00-4.80) 10^3/uL [place] # (Auto) 0.64 (0.00-0.80) 10^3/uL Eos # (Auto) 0.19 (0.00-0.45) 10^3/uL Baso # (Auto) 0.05 10^3/uL Sodium 142 (136-145) mEq/L Potassium 4.5 (3.5-5.0) mEq/L Chloride 105 (98-106) mEq/L Carbon Dioxide 27 (21-32) mmol/L BUN 20 H (7-18) mg/dL Creatinine 1.9 H (0.7-1.3) mg/dL Est Cr Clr Drug Dosing 28.50 mL/min Estimated GFR (MDRD) 34 L (>=60) mL/min Glucose 90 (75-99) mg/dL POC Glucose 96 (75-105) mg/dl Calcium 8.5 (8.4-10.1) mg/dL C-Reactive Protein 1.0 H (0.2-0.8) mg/dL Med Orders - Current: Current Medications Acetaminophen (Tylenol) 650 mg PO Q4H PRN PRN Reason: Pain (Mild 1-3)/fever Atorvastatin Calcium (Lipitor) 20 mg PO BEDTIME [facility] Last Admin: 04/28/18 19:32 Dose: 20 mg Enoxaparin Sodium (Lovenox) 30 mg SUBCUT DAILY@1600 [facility] Last Admin: 04/28/18 16:03 Dose: 30 mg Furosemide (Lasix) 40 mg PO DAILY [facility] Last Admin: 04/29/18 08:27 Dose: 40 mg Insulin Aspart (Novolog) 0 unit SUBCUT WITHMEALSANDBED [facility]; Protocol Last Admin: 04/29/18 08:29 Dose: Not Given Insulin Detemir (Levemir) 25 unit SUBCUT BEDTIME [facility] Last Admin: 04/28/18 20:28 Dose: 25 units Insulin Detemir (Levemir) 30 unit SUBCUT DAILY [facility] Last Admin: 04/29/18 08:30 Dose: 30 units Lisinopril (Prinivil) 2.5 mg PO DAILY [facility] Last Admin: 04/29/18 08:28 Dose: 2.5 mg Magnesium Hydroxide (Milk Of Magnesia) 30 ml PO Q12H PRN PRN Reason: Constipation Metoprolol Succinate (Toprol Xl) 25 mg PO DAILY [facility] Last Admin: 04/29/18 08:27 Dose: 25 mg Nitroglycerin (Nitrostat) 0.4 mg SL Q5M PRN PRN Reason: Chest Pain Niacin [Niaspan] 1, (000 Mg) 1,000 mg PO BEDTIME [facility] Last Admin: 04/28/18 19:33 Dose: 1,000 mg Oxybutynin Chloride (Oxybutynin) 5 mg PO BID [facility] Last Admin: 04/29/18 08:28 Dose: 5 mg Potassium Chloride (Klor-Con 10) 20 meq PO BIDMEALS [facility] Last Admin: 04/29/18 08:27 Dose: 20 meq Temazepam (Restoril) 15 mg PO BEDTIME PRN PRN Reason: Sleep Discontinued Medications Sodium Chloride (Normal Saline) 1,000 mls @ 500 mls/hr IV .BOLUS [facility] Last Admin: 04/26/18 11:24 Dose: 500 mls/hr Sodium Chloride (Normal Saline) 250 mls @ 500 mls/hr IV ASDIRECTED [facility] Sodium Chloride (Normal Saline) 1,000 mls @ 500 mls/hr IV ASDIRECTED [facility] Clindamycin Phosphate 300 mg/ (Premix) 50 mls @ 100 mls/hr IV Q6H [facility] Last Admin: 04/26/18 05:30 Dose: 100 mls/hr Clindamycin Phosphate 300 mg/ (Premix) 50 mls @ 100 mls/hr IV 0000,0600,1200, 1800 [facility] Last Admin: 04/27/18 05:28 Dose: 100 mls/hr Sodium Chloride (Normal Saline) 1,000 mls @ 75 mls/hr IV ASDIRECTED [facility] Last Admin: 04/28/18 07:46 Dose: 75 mls/hr Insulin Aspart (Novolog) 20 unit SUBCUT 0800,1200 [facility] Last Admin: 04/26/18 11:38 Dose: Not Given Insulin Detemir (Levemir) 30 unit SUBCUT QAM [facility] Insulin Detemir (Levemir) 25 unit SUBCUT QPM [facility] Potassium Chloride (Potassium Chloride Solution) 20 meq PO DAILY [facility] Last Admin: 04/26/18 07:26 Dose: 20 meq Spironolactone (Aldactone) 25 mg PO DAILY [facility] Last Admin: 04/27/18 07:50 Dose: 25 mg - Exam General: Reports: Alert, Oriented, Cooperative, No Acute Distress Neck: Reports: Supple Lungs: Reports: Clear to Auscultation, Normal Respiratory Effort Cardiovascular: Reports: Regular Rate, Regular Rhythm GI/Abdominal Exam: Soft, Non-Tender Back Exam: Reports: Normal Inspection, Full Range of Motion Extremities: Normal Range of Motion, Non-Tender, Normal Capillary Refill, Redness (mild top of foot. Much improved. No heat, no drainage. ) Skin: Reports: Warm, Dry, Intact Neurological: Reports: No New Focal Deficit Psy/Mental Status: Reports: Alert, Normal Affect, Normal Mood
== END 2018-04-29 11:00 | disposition home or self-care (01) | DRG 683 ==
LOC: CC.ED 12:30 → CC.MS 13:33 → UNDOADMIN 14:04
PROVIDERS: ADMIT Nurse Practitioner Family; ATTEND General Practice
DX: N17.9 Acute kidney failure, unspecified (principal); L03.116 Cellulitis of left lower limb; E11.22 Type 2 diabetes mellitus with diabetic chronic kidney disease; I12.9 Hypertensive chronic kidney disease with stage 1 through stage 4 chronic kidney disease, or unspecified chronic kidney disease; N18.9 Chronic kidney disease, unspecified; N18.3 Chronic kidney disease, stage 3 (moderate); I25.10 Atherosclerotic heart disease of native coronary artery without angina pectoris; R10.9 Unspecified abdominal pain; E78.5 Hyperlipidemia, unspecified; F03.90 Unspecified dementia, unspecified severity, without behavioral disturbance, psychotic disturbance, mood disturbance, and anxiety; E66.9 Obesity, unspecified; Z68.37 Body mass index [BMI] 37.0-37.9, adult; M19.90 Unspecified osteoarthritis, unspecified site; Z79.4 Long term (current) use of insulin; Z79.899 Other long term (current) drug therapy; Z95.1 Presence of aortocoronary bypass graft
CPT/HCPCS: 36415; 74176; 80048; 80053; 81001; 82962; 85025; 86140; 99283; A9270-GY; J1650; J1815-GY; J7030